=== PATIENT | female | born 1990 | race African-American/Black ===

== ENCOUNTER 2016-11-02 05:38 | Inpatient (IN) | payer OTHER ==
--- NOTE | ~2016-11-02 | DS ---
Discharge Summary [facility] [address] [place]. [address] NAME: EDDIE ESCOBAR : 89 STATUS : DIS IN PAT#: [id number] AGE: 26 ADM/REG DATE : 11/02/16 MR#: [id number] REPORT SERV DATE: 11/14/16 DICTATED BY: ELROY LAZARO DATE: 11/14/16 REPORT STATUS : Draft TRANSCRIBED BY: MODKrista DATE: 11/14/16 Data Collection from hospitalization DISCHARGE DIAGNOSES: 1. End-stage renal disease. 2. Hypertension. 3. Type 2 diabetes mellitus. 4. Noncompliance. 5. Bipolar disorder. 6. Nausea and vomiting. 7. History of stroke. 8. Hypothyroidism. 9. History of cholestatic hepatitis. 10.Neurogenic bladder. 11.History of steal syndrome. CONSULTATIONS: None. PROCEDURES: None. DISCHARGE MEDICATIONS: Coreg 25 mg twice a day, Prozac 10 mg every morning, Apresoline 50 mg every eight hours, NovoLog injection insulin as instructed, Levemir 10 units subcutaneously twice a day, Imodium 2 mg daily as needed, Cozaar 50 mg every morning, and Procardia XL 90 mg every morning, Protonix 40 mg daily as needed, and Florastor 250 mg every morning. CONDITION ON DISCHARGE: Stable. DISPOSITION: The patient was discharged home on a renal-diabetic diet with activities as instructed. She would resume outpatient hemodialysis as instructed. HOSPITAL COURSE: This is a 26-year-old female, who dialyzes on Mondays, Wednesdays, and Fridays at [facility] through a chronic catheter. She has an extensive medical history that is well outlined in previous notes. She has a significant history of nephrotic range proteinuria and type 1 insulin-dependent diabetes mellitus. She has a longstanding history of noncompliance and a very difficult social history. She has been on dialysis since April 2015. She was recently here at [facility] with a prolonged admission and went home on 10/11/2016. She came back on the day of this admission with less than a 24-hour history of nausea, vomiting, and very little oral intake. She was found to have hypertensive urgency in the emergency room that did not respond to hydralazine. Her blood pressure was 240/144 on arrival. She was admitted to the hospital at this time for further evaluation and treatment. Upon admission, she was placed in the MICU. Cardene drip was started. Later in the afternoon, her blood pressure was 158/91. KUB showed nonobstructive gas pattern. A PICC line was inserted. Cardene drip was continued. We would restart home blood pressure medication, except for Catapres patch. Sliding scale insulin would be provided as well as proton pump inhibitor. The following day, the O2 saturation was 100% on 4 L. She had no dyspnea. She did have rhonchi in both lungs. Blood pressure had improved. Supportive care Discharge Summary [id number] [place]. [address] NAME: EDDIE ESCOBAR : 90 STATUS : DIS IN PAT#: [id number] AGE: 26 ADM/REG DATE : 11/02/16 MR#: [id number] REPORT SERV DATE: 11/14/16 DICTATED BY: ELROY LAZARO DATE: 11/14/16 REPORT STATUS : Draft TRANSCRIBED BY: MODL DATE: 11/14/16 continued. Placed on a clear liquid diet. On 11/04/2016, her blood pressure continued to improve with oral medications. She was going to be transferred to the floor. Hemodialysis therapy continued. She continued to progress. She had no new complaints. She had no edema. She had good pain control. Discharge planning was performed. On 11/06/2016, hemodialysis therapy was performed. Discharge instructions were given. Due to her improved and stable condition, she was discharged home with the above-stated instructions. Information collected by: Lisa Rene I submit the above information as my discharge summary. MELISSA/ZACARIAS Elroy Lazaro M.D. / [id number] CC: Tee Aparicio M.D.
--- NOTE | ~2016-11-02 | HP ---
History And Physical [id number] [facility] [place]. [address] NAME: EDDIE MASON : 90 STATUS : ADM IN [facility]#: [id number] AGE: 26 ADM/REG DATE : 11/02/16 MR#: [id number] REPORT SERV DATE: 11/02/16 DICTATED BY: JOSH DESIR DATE: 11/02/16 REPORT STATUS : Draft TRANSCRIBED BY: MODKrista DATE: 11/02/16 DATE OF ADMISSION: 11/02/2016 CHIEF COMPLAINT: Nausea, vomiting. HISTORY OF PRESENT ILLNESS: Ms Mason is a 26-year-old female, well known to the Nephrology Service. She dialyzes Friday, Friday, Friday at [address] [place] [address] through a chronic catheter. She has an extensive medical history that is well outlined in previous notes. She has a significant history of nephrotic range proteinuria and type 1 insulin dependent diabetes mellitus. She has a longstanding history of noncompliance and a very difficult social history. She has been on dialysis since April 2015. She was recently here at [facility] with a prolonged admission and went home on 10/11/2016. She came back today with less than 24 hour history of nausea, vomiting, and very little oral intake. She was found to have hypertensive urgency in the emergency room that did not respond to hydralazine. Her blood pressure was 240/144 on arrival. Nephrology was called for admission. She was placed in the MICU and started on a Cardene drip. This afternoon blood pressure is 158/91. Today, KUB showed no nonobstructive gas pattern. Chest x-ray showed no peripheral edema. Potassium 3.6. ALT, AST were normal. PAST MEDICAL HISTORY: 1. ESRD, [address] [place] [address], Friday, Friday, Friday, PermCath. 2. Longstanding history of medical noncompliance as per chart. 3. IDDM type 1 with neuropathy, gastroparesis, and nephrotic range of proteinuria, intolerant of Reglan. 4. Hypertension. 5. Esophagitis on previous scopes. 6. Bipolar disorder with depression. 7. History of stroke. 8. History of atrial thrombus. 9. Hypothyroid. 10.Cholestatic hepatitis with previous liver biopsy. 11.Neurogenic bladder. 12.History of Steal syndrome with ligation of AV fistula and chronic PermCath. 13.Echo July 2016, EF 50% with LVH, diastolic dysfunction, trace effusion, RVSP 27, and a right atrial mass. MEDICATIONS: Home medication list is reviewed. Unclear if she is actually taking the medications or was unable to keep the medications down yesterday from her nausea and vomiting. List includes Coreg 25 mg b.i.d., Catapres patch #3 which she is not wearing at the time of admission, Bentyl 10 mg p.r.n. b.i.d., Cardura 4 mg b.i.d., Prozac 10 mg daily, hydralazine 50 mg t.i.d., Levemir 10 units b.i.d., Imodium p.r.n., Cozaar 50 mg daily, Procardia 90 mg daily, Protonix 40 mg daily, Florastor 250 mg daily. FAMILY HISTORY: Noncontributory. History And Physical [address] [address] NAME: EDDIE MASON : 90 STATUS : ADM IN [facility]#: [id number] AGE: 26 ADM/REG DATE : 11/02/16 MR#: [id number] REPORT SERV DATE: 11/02/16 DICTATED BY: JOSH DESIR DATE: 11/02/16 REPORT STATUS : Draft TRANSCRIBED BY: ZACARIAS DATE: 11/02/16 SOCIAL HISTORY: Lives with her aunt in [place], single, disabled. Denies alcohol and tobacco. REVIEW OF SYSTEMS: Please see HPI for pertinent details. PHYSICAL EXAMINATION: VITAL SIGNS: Temperature 97.5, pulse 102, blood pressure 158/91, respirations 14, 97% sat 2 liters per nasal cannula. GENERAL: She is a young female, who is awake, alert, oriented, and cooperative with the exam. She has a flat affect. Denies current complaints other than nausea and vomiting. HEENT: Sclerae without icterus. Conjunctivae not injected. She has diffuse 2 to 3+ body anasarca. No dyspnea. HEART: Rate tachycardic, regular rhythm. ABDOMEN: Obese, soft, nontender, nondistended. EXTREMITIES: Show the edema. Her IJ Perma-Cath is bandaged, clean, dry, and intact. NEURO: Grossly nonfocal. SKIN: Shows no rash. She has a right PICC line placed today. LABORATORY DATA: Sodium 140, potassium 3.6, bicarb 29, BUN 15, creatinine 4.2, calcium 9.4. Albumin 4.2, total bilirubin 2.5. White count 5500, hemoglobin 10.3, platelets 175,000. ASSESSMENT AND PLAN: Ms Mason has end-stage renal disease, insulin-dependent diabetes mellitus, malignant hypertension, neuropathy, gastroparesis, and the medical history outlined above. She presents today with hypertensive urgency. Admit to the Renal service to the ICU. Continue Cardene drip. Restart home blood pressure medications except for Catapres patch. Need to clarify which she was actually taking at home. PPI sliding scale insulin. Dialysis Friday. Transition to floor when blood pressure is improved. We will ask case management to re-evaluate her situation on Friday. FILEMON/ZACARIAS Josh Desir M.D. / [id number] CC: Josh Desir M.D.
[2016-11-02 04:31] LABS: BASOPHILS 0.5 %; BASOPHILS ABSOLUTE 0.03 10/3/uL (0.0-0.16); EOSINOPHILS 8.7 %; EOSINOPHILS ABSOLUTE 0.48 10/3/uL (0.0-0.53); ER CBC TAT 0 Hrs 03 Mins; HEMOGLOBIN 10.3 g/dL (12.0-16.0); IMMATURE GRANULOCYTES 0.2 %; IMMATURE GRANULOCYTES ABSOLUTE 0.01 10/3/uL (0.0-0.11); LYMPHOCYTES 12.3 %; LYMPHOCYTES ABSOLUTE 0.68 10/3/uL (0.67-4.30); MEAN CORPUS HGB CONC 31.9 g/dL (32.0-36.0); MONOCYTES 10.9 %; NEUTROPHILS 67.4 %; NEUTROPHILS ABSOLUTE 3.72 10/3/uL (2.02-8.40); PLATELET COUNT 175 10/3/uL (150-400); RED CELL COUNT 3.43 10/6/uL (4.0-5.6); WHITE BLOOD CELLS 5.5 10/3/uL (4.5-10.5)
[2016-11-02 04:32] LABS: HEMATOCRIT 32.3 % (36.0-48.0); MANUAL DIFF NO %; MEAN CORPUSCULAR VOLUME 94.2 fL (80-100); RBC DISTRIBUTION WIDTH 19.2 % (12.0-16.0)
[2016-11-02 04:49] LABS: CALCIUM, SERUM 9.4 MG/DL (8.5-10.4); CHLORIDE, SERUM 97 MMOL/L (96-112); SGOT(AST) 18 U/L (5-40); SGPT(ALT) 14 U/L (5-65); SODIUM, SERUM 140 MMOL/L (135-148); TOTAL PROTEIN 8.3 G/DL (6.0-8.5); TROPONIN I 0.03 NG/ML (<0.05)
[2016-11-02 04:50] LABS: ALBUMIN 4.2 G/DL (3.5-5.0); ALKALINE PHOSPHATASE 278 U/L (45-117); BUN (BLOOD UREA NITROGEN) 15 MG/DL (6-23); CO2 (CARBON DIOXIDE) 29 MMOL/L (24-34); CREATININE 4.52 MG/DL (0.55-1.02); GFR AFRICAN AMERICAN 15 ML/MIN (>=60); GFR NON AFRICAN AMERICAN 13 ML/MIN (>=60); GLOBULIN 4.1 G/DL (2.5-4.1); GLUCOSE, SERUM 217 MG/DL (60-99); POTASSIUM, SERUM 3.6 MMOL/L (3.5-5.3); TOTAL BILIRUBIN 2.5 MG/DL (0-1.2)
[~2016-11-02 05:38] MED LIST: *UNABLE1; ACT300 PO; AMIT25 PO; APRES50 PO; BENTYL10 PO; BLOOD PRESSURE MED 1; BLOOD PRESSURE MED 2; CARDU4 PO; CAT1 PO; CAT2 PO; CATAPRES2 TOP; CATAPRES3 TOP; COREG25 PO; COZ50 PO; DSS PO; FLORASTOR250 MG PO; HEART MEDICATION; HUMALOG SC; HYDRALAZINE PO; HYDRALAZINE100 MG PO; IMDUR30 PO; IMOD PO; L20 PO; L40 PO; LASIX; LEVEMIR SC; LEVOTHYROXIN75 MCG PO; LIPITOR20 PO; LONITEN2.5 PO; NEUR100 PO; NORCO1 TA2 PO; NORCO1 TAB PO; NORV10 PO; NORV5 PO; NOVOLOG SC; NXL9 PO; PCET PO; PHOSLO PO; PR25 PO; PRIN10 PO; PRIN20 PO; PROTONIX PO; PROZ10 PO; PROZAC PO; REG PO; SENTAB PO; SEROQUEL50 MG PO; SPIRO25 PO; UNABLE TO VERIFY; VITE PO; ZESTRIL20 MG PO; ZOCOR10 PO
[2016-11-02] MEDS ORDERED: COREG25 PO (09:08)
[2016-11-02] MEDS ORDERED: CATAPRES3 TOP (09:08)
[2016-11-02] MEDS ORDERED: CARDU4 PO (09:09)
[2016-11-02] MEDS ORDERED: BENTYL10 PO (09:09)
[2016-11-02] MEDS ORDERED: PROZ10 PO (09:09)
[2016-11-02] MEDS ORDERED: LEVEMIR SC (09:10)
[2016-11-02] MEDS ORDERED: APRES50 PO (09:10)
[2016-11-02] MEDS ORDERED: NOVOLOG SC (09:10)
[2016-11-02] MEDS ORDERED: IMOD PO (09:11)
[2016-11-02] MEDS ORDERED: NXL9 PO (09:11)
[2016-11-02] MEDS ORDERED: COZ50 PO (09:11)
[2016-11-02] MEDS ORDERED: FLORASTOR250 MG PO (09:12)
[2016-11-02] MEDS ORDERED: PROTONIX PO (09:12)
[2016-11-03 09:53] LABS: BASOPHILS 0.6 %; BASOPHILS ABSOLUTE 0.05 10/3/uL (0.0-0.16); EOSINOPHILS 7.6 %; HEMATOCRIT 31.8 % (36.0-48.0); IMMATURE GRANULOCYTES 0.3 %; IMMATURE GRANULOCYTES ABSOLUTE 0.02 10/3/uL (0.0-0.11); LYMPHOCYTES 12.2 %; LYMPHOCYTES ABSOLUTE 0.97 10/3/uL (0.67-4.30); MEAN CORPUS HGB CONC 31.4 g/dL (32.0-36.0); MEAN CORPUSCULAR HEMOGLOB 30.4 pg (26.0-34.0); MEAN CORPUSCULAR VOLUME 96.7 fL (80-100); MEAN PLATELET VOLUME 10.2 fL (9.2-13.0); MONOCYTES 7.3 %; MONOCYTES ABSOLUTE 0.58 10/3/uL (0.21-1.20); NEUTROPHILS ABSOLUTE 5.71 10/3/uL (2.02-8.40); PLATELET COUNT 205 10/3/uL (150-400); RBC DISTRIBUTION WIDTH 19.7 % (12.0-16.0); RED CELL COUNT 3.29 10/6/uL (4.0-5.6)
[2016-11-03 09:54] LABS: MANUAL DIFF NO %; WHITE BLOOD CELLS 7.9 10/3/uL (4.5-10.5)
[2016-11-03 09:57] LABS: INTERNATIONAL NORMAL RATI 1.3 UNITS (-); PROTIME (NOT ORD) 16.1 SEC (12.0-14.5)
[2016-11-03 10:04] LABS: CHLORIDE, SERUM 98 MMOL/L (96-112); CO2 (CARBON DIOXIDE) 33 MMOL/L (24-34); PHOSPHORUS, SERUM 4.9 MG/DL (2.5-4.5); POTASSIUM, SERUM 3.5 MMOL/L (3.5-5.3); SODIUM, SERUM 143 MMOL/L (135-148)
[2016-11-03 10:05] LABS: BUN (BLOOD UREA NITROGEN) 21 MG/DL (6-23); CREATININE 6.26 MG/DL (0.55-1.02); GFR AFRICAN AMERICAN 10 ML/MIN (>=60); GFR NON AFRICAN AMERICAN 8 ML/MIN (>=60); GLUCOSE, SERUM 173 MG/DL (60-99)
[2016-11-04 04:50] LABS: ALBUMIN 3.8 G/DL (3.5-5.0); BUN (BLOOD UREA NITROGEN) 22 MG/DL (6-23); CALCIUM, SERUM 8.1 MG/DL (8.5-10.4); CHLORIDE, SERUM 96 MMOL/L (96-112); CO2 (CARBON DIOXIDE) 34 MMOL/L (24-34); PHOSPHORUS, SERUM 5.4 MG/DL (2.5-4.5); POTASSIUM, SERUM 3.7 MMOL/L (3.5-5.3); SODIUM, SERUM 142 MMOL/L (135-148)
[2016-11-04 04:52] LABS: GFR AFRICAN AMERICAN 8 ML/MIN (>=60); GFR NON AFRICAN AMERICAN 7 ML/MIN (>=60); GLUCOSE, SERUM 105 MG/DL (60-99)
[2016-11-04 05:00] LABS: BASOPHILS 0.6 %; BASOPHILS ABSOLUTE 0.05 10/3/uL (0.0-0.16); EOSINOPHILS 12.1 %; EOSINOPHILS ABSOLUTE 0.98 10/3/uL (0.0-0.53); HEMATOCRIT 32.6 % (36.0-48.0); HEMOGLOBIN 9.9 g/dL (12.0-16.0); IMMATURE GRANULOCYTES 0.1 %; IMMATURE GRANULOCYTES ABSOLUTE 0.01 10/3/uL (0.0-0.11); LYMPHOCYTES 20.1 %; LYMPHOCYTES ABSOLUTE 1.62 10/3/uL (0.67-4.30); MEAN CORPUS HGB CONC 30.4 g/dL (32.0-36.0); MEAN CORPUSCULAR HEMOGLOB 29.1 pg (26.0-34.0); MEAN CORPUSCULAR VOLUME 95.9 fL (80-100); MEAN PLATELET VOLUME 9.7 fL (9.2-13.0); MONOCYTES 8.6 %; MONOCYTES ABSOLUTE 0.69 10/3/uL (0.21-1.20); NEUTROPHILS 58.5 %; NEUTROPHILS ABSOLUTE 4.72 10/3/uL (2.02-8.40); PLATELET COUNT 237 10/3/uL (150-400); RBC DISTRIBUTION WIDTH 19.6 % (12.0-16.0); WHITE BLOOD CELLS 8.1 10/3/uL (4.5-10.5)
[2016-11-04 05:02] LABS: MANUAL DIFF NO %
[2016-11-05 06:41] LABS: BASOPHILS 0.5 %; BASOPHILS ABSOLUTE 0.04 10/3/uL (0.0-0.16); EOSINOPHILS 12.9 %; HEMATOCRIT 35.2 % (36.0-48.0); HEMOGLOBIN 10.8 g/dL (12.0-16.0); IMMATURE GRANULOCYTES 0.1 %; IMMATURE GRANULOCYTES ABSOLUTE 0.01 10/3/uL (0.0-0.11); LYMPHOCYTES 14.8 %; LYMPHOCYTES ABSOLUTE 1.15 10/3/uL (0.67-4.30); MEAN CORPUS HGB CONC 30.7 g/dL (32.0-36.0); MEAN CORPUSCULAR HEMOGLOB 29.7 pg (26.0-34.0); MEAN CORPUSCULAR VOLUME 96.7 fL (80-100); MEAN PLATELET VOLUME 10.1 fL (9.2-13.0); MONOCYTES 10.6 %; MONOCYTES ABSOLUTE 0.82 10/3/uL (0.21-1.20); NEUTROPHILS 61.1 %; NEUTROPHILS ABSOLUTE 4.74 10/3/uL (2.02-8.40); PLATELET COUNT 233 10/3/uL (150-400); RBC DISTRIBUTION WIDTH 18.7 % (12.0-16.0); RED CELL COUNT 3.64 10/6/uL (4.0-5.6); WHITE BLOOD CELLS 7.8 10/3/uL (4.5-10.5)
[2016-11-05 06:42] LABS: MANUAL DIFF NO %
[2016-11-05 06:55] LABS: ALBUMIN 3.6 G/DL (3.5-5.0); CALCIUM, SERUM 8.9 MG/DL (8.5-10.4); CHLORIDE, SERUM 100 MMOL/L (96-112); PHOSPHORUS, SERUM 5.3 MG/DL (2.5-4.5); POTASSIUM, SERUM 3.8 MMOL/L (3.5-5.3); SODIUM, SERUM 140 MMOL/L (135-148)
[2016-11-05 06:57] LABS: BUN (BLOOD UREA NITROGEN) 17 MG/DL (6-23); CO2 (CARBON DIOXIDE) 29 MMOL/L (24-34); CREATININE 6.63 MG/DL (0.55-1.02); GFR AFRICAN AMERICAN 9 ML/MIN (>=60); GFR NON AFRICAN AMERICAN 8 ML/MIN (>=60); GLUCOSE, SERUM 174 MG/DL (60-99)
[2016-11-06 09:04] LABS: BASOPHILS 0.8 %; BASOPHILS ABSOLUTE 0.06 10/3/uL (0.0-0.16); EOSINOPHILS 11.8 %; EOSINOPHILS ABSOLUTE 0.93 10/3/uL (0.0-0.53); HEMOGLOBIN 10.5 g/dL (12.0-16.0); IMMATURE GRANULOCYTES 0.3 %; IMMATURE GRANULOCYTES ABSOLUTE 0.02 10/3/uL (0.0-0.11); LYMPHOCYTES ABSOLUTE 1.26 10/3/uL (0.67-4.30); MANUAL DIFF NO %; MEAN CORPUS HGB CONC 31.8 g/dL (32.0-36.0); MEAN CORPUSCULAR HEMOGLOB 30.2 pg (26.0-34.0); MEAN CORPUSCULAR VOLUME 94.8 fL (80-100); MEAN PLATELET VOLUME 10.2 fL (9.2-13.0); MONOCYTES 10.9 %; MONOCYTES ABSOLUTE 0.86 10/3/uL (0.21-1.20); NEUTROPHILS 60.2 %; NEUTROPHILS ABSOLUTE 4.73 10/3/uL (2.02-8.40); PLATELET COUNT 235 10/3/uL (150-400); RBC DISTRIBUTION WIDTH 18.4 % (12.0-16.0); RED CELL COUNT 3.48 10/6/uL (4.0-5.6); WHITE BLOOD CELLS 7.9 10/3/uL (4.5-10.5)
[2016-11-06 09:26] LABS: ALBUMIN 3.4 G/DL (3.5-5.0); BUN (BLOOD UREA NITROGEN) 27 MG/DL (6-23); CALCIUM, SERUM 8.5 MG/DL (8.5-10.4); CHLORIDE, SERUM 100 MMOL/L (96-112); CO2 (CARBON DIOXIDE) 27 MMOL/L (24-34); CREATININE 8.51 MG/DL (0.55-1.02); GFR AFRICAN AMERICAN 7 ML/MIN (>=60); GFR NON AFRICAN AMERICAN 6 ML/MIN (>=60); GLUCOSE, SERUM 185 MG/DL (60-99); PHOSPHORUS, SERUM 6.9 MG/DL (2.5-4.5); POTASSIUM, SERUM 4.6 MMOL/L (3.5-5.3); SODIUM, SERUM 140 MMOL/L (135-148)
[2017-03-02] MEDS ORDERED: BIST PO (11:48)
[2017-03-02] MEDS ORDERED: NOVOLOG SC (11:48)
[2017-03-02] MEDS ORDERED: MULTIVITAMI1 PO (11:53)
[2017-03-02] MEDS ORDERED: MIRALAX POWDER1 PKT PO (11:54)
[2017-03-02] MEDS ORDERED: CARDCD120 PO (11:55)
[2017-03-02] MEDS ORDERED: NXL9 PO (11:58)
[2017-03-02] MEDS ORDERED: REG5 PO (11:59)
== END 2016-11-06 20:06 | disposition home or self-care (01) | DRG 682 ==
LOC: ER 05:38 → MIC 08:32 → 2SO 11-04 13:51
PROVIDERS: Emergency Medicine; Internal Medicine Nephrology; Registered Nurse
PROC: 02HV33Z Insertion of Infusion Device into Superior Vena Cava, Percutaneous Approach (ICD-10-PCS; 2016-11-02)
PROC: 4A02X4A Measurement of Cardiac Electrical Activity, Guidance, External Approach (ICD-10-PCS; 2016-11-02)
PROC: 5A1D60Z (ICD-10-PCS; principal; 2016-11-04)
DX: I12.0 Hypertensive chronic kidney disease with stage 5 chronic kidney disease or end stage renal disease (principal); N18.6 End stage renal disease; E10.21 Type 1 diabetes mellitus with diabetic nephropathy; K31.84 Gastroparesis; E10.43 Type 1 diabetes mellitus with diabetic autonomic (poly)neuropathy; K75.89 Other specified inflammatory liver diseases; N31.9 Neuromuscular dysfunction of bladder, unspecified; I16.0 Hypertensive urgency; E10.22 Type 1 diabetes mellitus with diabetic chronic kidney disease; F31.9 Bipolar disorder, unspecified; E03.9 Hypothyroidism, unspecified; Z99.2 Dependence on renal dialysis; Z79.4 Long term (current) use of insulin; Z91.14 Patient's other noncompliance with medication regimen; Z86.73 Personal history of transient ischemic attack (TIA), and cerebral infarction without residual deficits
CPT/HCPCS: 36569; 74022; 80048; 80053; 80069; 82962; 83690; 83735; 84100; 84484; 85025; 85610; 87641; 93005; 96374; 96375; 96376; 99291; A9270-GY; C1751; C9113; G0257; J0360; J1170; J2550; J2997

== ENCOUNTER 2016-11-09 23:02 | Inpatient (IN) | payer OTHER ==
--- NOTE | ~2016-11-09 | DS ---
Discharge Summary [facility] [address] [place]. [address] NAME: EDDIE MASON : 89 STATUS : ADM IN PAT#: [id number] AGE: 26 ADM/REG DATE : 11/10/16 MR#: [id number] REPORT SERV DATE: 11/13/16 DICTATED BY: DAMIR SANCHEZ DATE: 11/13/16 REPORT STATUS : Draft TRANSCRIBED BY: MODKrista DATE: 11/13/16 ADMISSION DATE: 11/10/2016 DISCHARGE DATE: 11/13/2016 INDICATION FOR HOSPITALIZATION: Accelerated hypertension, nausea, and vomiting. DISCHARGE DIAGNOSES: 1. Nausea and vomiting secondary to diabetic gastroparesis. 2. Accelerated hypertension, likely due to noncompliance of medication compounded by nausea, vomiting, and inability to keep down medications. 3. End-stage renal disease, dialyzing Friday, Friday, and Friday at [facility] by PermCath. 4. Type 1 diabetes mellitus, insulin dependent. 5. Bipolar illness with depression. 6. History of noncompliance with recurrent hospitalizations. 7. Remote esophagitis. 8. Remote cerebrovascular accident. 9. Atrial thrombus. 10.Hypothyroidism. 11.History of cholestatic hepatitis on liver biopsy. 12.Chronic PermCath use for dialysis due to Steal syndrome and inability to create AV fistula or graft. HOSPITAL COURSE: Ms. Mason presented to the emergency room with protracted nausea and vomiting. She was noted to have a blood pressure of 254/149 which did not respond to the IV hydralazine or IV labetalol. She required initiation of Cardene. She had persistent nausea and vomiting which was treated with Zofran, Phenergan, and Reglan. The nausea and vomiting abated and her routine antihypertensives were initiated. She remained in the unit until 11/12/2016 when she was off Cardene and blood pressure was controlled on oral medication. She was tolerating diet well. She has a tendency to bring in junk food and eat which affects her blood sugars with very labile swings. She had no complaints at the time of discharge. She was advised that she would not receive IV Dilaudid due to worsening of her diabetic gastroparesis. She was advised that she should not bring in food from home if she returned to the hospital because that effected blood sugar control. DISCHARGE MEDICATIONS: 1. Coreg 25 mg twice daily. 2. Prozac 10 mg daily. 3. Levemir insulin 15 units subcu twice daily. 4. Cozaar 50 mg daily. 5. Reglan 10 mg a.c. and at bedtime. 6. Nifedipine XL 90 mg daily. 7. Protonix 40 mg daily. 8. Florastor 250 mg daily. 9. Hydralazine 50 mg p.o. q.8h. 10.Humalog insulin per sliding home scale. Discharge Summary [address] [address] NAME: EDDIE MASON : 90 STATUS : ADM IN [facility]#: [id number] AGE: 26 ADM/REG DATE : 11/10/16 MR#: [id number] REPORT SERV DATE: 11/13/16 DICTATED BY: DAMIR SANCHEZ DATE: 11/13/16 REPORT STATUS : Draft TRANSCRIBED BY: MODL DATE: 11/13/16 11.Imodium 2 mg daily p.r.n. for diarrhea. FOLLOWUP: On dialysis at [address] [place] [address] as scheduled. DIET: 2000 calorie ADA renal diet with 1500 mL fluid restriction per day. NO FURTHER DILAUDID as she is intolerant to Dilaudid due to worsening of gastroparesis on this medication. The patient advised not to bring in food from home if she re-presented to the hospital, it will be removed from her room until her discharge. CG/ZACARIAS Damir Sanchez M.D. / [id number] CC: Damir Sanchez M.D.
--- NOTE | ~2016-11-09 | DS ---
Discharge Summary [facility] [address] [facility] [place]. [address] NAME: EDDIE MASON : 89 STATUS : DIS IN PAT#: [id number] AGE: 26 ADM/REG DATE : 11/10/16 MR#: [id number] REPORT SERV DATE: 12/28/16 DICTATED BY: DATE: REPORT STATUS : Draft TRANSCRIBED BY: MODL DATE: 12/27/16 ADMISSION DATE: 11/10/2016 DISCHARGE DATE: 12/27/2016 CHIEF COMPLAINT AND HISTORY OF PRESENT ILLNESS: Ms. Mason is a 26-year-old female, well known to our service with multiple admissions because of noncompliance to medication, dialysis and diet therapy. She presented to the hospital on 11/10/2016 with accelerated hypertension, nausea, and vomiting. COURSE IN HOSPITAL: Ms. Mason presented with nausea, vomiting, accelerated hypertension of 259/149 that did not respond to IV push medicines in the emergency department, therefore, required initiation of Cardene drip and she is noncompliant with her blood pressure medications at home. She also had persistent nausea and vomiting due to noncompliance with medications and diet therapy. With Cardene, Zofran, Reglan, , these all improved and she was able to be transferred out of the unit on 11/12/2016 on blood pressure medicines, controlled on oral medications, tolerating diet, and plans were to discharge the patient. However, given her multiple hospitalizations for her noncompliance and inability to care for herself, it was decided to keep her in the hospital and see if we could seek placement at either a fpc versus assisted living facility and Case Management got involved and they had worked relentlessly trying to get this patient some better situation for her care with more help. However, after searching as far out as [place] for places, they have exhausted all measures and plans have been made to send the patient home with her aunt who previously cared for the patient in the past. She has been stable for over a month here in the hospital, and she is ready for discharge. DISCHARGE MEDICATIONS: Coreg, Colace, doxazosin, Prozac, folic acid, NovoLog insulin per sliding scale, Reglan, multivitamin, nifedipine, Protonix, Seroquel, Florastor, Carafate, hydralazine, and Levemir. DISCHARGE PLAN: She is going to be discharged to home. Followup at dialysis on [address] on Friday. Her diet is to be 1800-calorie renal diet. She has had multiple instructions on diet therapy while she has been here and remains noncompliant with diet. FINAL DIAGNOSES: 1. Initially was intractable nausea and vomiting. 2. Accelerated hypertension. 3. Noncompliance to medications as well as diet therapy. 4. End-stage renal disease. 5. Type 1 diabetes. 6. Bipolar disorder. 7. Inability to care for self. 8. A distant history of atrial thrombus, not a Coumadin candidate due to noncompliance. 9. Esophagitis. 10.History of remote cerebrovascular accident. 11.Hypothyroidism. 12.History of cholestatic hepatitis. Discharge Summary [address] [address] NAME: EDDIE MASON : 89 STATUS : DIS IN PAT#: [id number] AGE: 26 ADM/REG DATE : 11/10/16 MR#: [id number] REPORT SERV DATE: 12/28/16 DICTATED BY: DATE: REPORT STATUS : Draft TRANSCRIBED BY: ZACARIAS DATE: 12/27/16 LEODAN/ZACARIAS MARISSA Mann / [id number] CC: Cosmo Olmos M.D.
--- NOTE | ~2016-11-09 | HP ---
History And Physical [address] [place]. [address] NAME: EDDIE MASON : 90 STATUS : ADM IN [facility]#: [id number] AGE: 26 ADM/REG DATE : 11/10/16 MR#: [id number] REPORT SERV DATE: 11/10/16 DICTATED BY: DAMIR SANCHEZ DATE: 11/10/16 REPORT STATUS : Draft TRANSCRIBED BY: MODKrista DATE: 11/10/16 DATE OF ADMISSION: 11/10/2016 INDICATION FOR ADMISSION: Accelerated hypertension, nausea, and vomiting. HISTORY OF PRESENT ILLNESS: Ms. Mason is a 26-year-old female who is followed, on chronic dialysis at [address] [place] [address] on Friday, Friday, and Friday. She presented to the emergency room with a blood pressure of 254/149 and this did not respond to various IV antihypertensives, and Cardene infusion was initiated. She has a strong history of noncompliance, and she noted problems with recent nausea and vomiting. She is afebrile with some nausea this morning. Blood sugars have been controlled. ALLERGIES: TO PENICILLIN. HOME MEDICATIONS: Carvedilol, Prozac, Levemir insulin, Synthroid, Prinivil, Reglan, hydralazine, clonidine, nifedipine, Imodium, losartan, NovoLog insulin, Protonix, Florastor. REVIEW OF SYSTEMS: HEENT: No change in visual acuity. No epistaxis. No otic infection. No pharyngitis. PULMONARY: Denies shortness of breath, hemoptysis. CARDIAC: No chest pain. No lower extremity edema. GI: Recent nausea and vomiting. No hematemesis. No melena. : No gross hematuria. MUSCULOSKELETAL: No arthralgias. INTEGUMENT: No rash or itching. NEUROLOGIC: Denies any recent change in regard to weakness. No seizure activity. Remainder of 12-point review of systems is negative. PAST MEDICAL HISTORY: End-stage renal disease attributed to type 1 diabetes mellitus dialyzing Friday, Friday, Friday at [address] [place] [address]. Refractory hypertension and admissions for accelerated hypertension. 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 Chronic PermCath for access due to steal syndrome requiring ligation of fistula. History of esophagitis. Strong history of noncompliance. SOCIAL HISTORY: The patient has altered living conditions; sometimes living with father, sometimes with aunt. She has also lived in assisted living. She is unable to make her own decisions per Psychiatry, and she has been under court-appointed state conservator in the past. No use of illicit drugs, alcohol or tobacco. FAMILY HISTORY: Positive for psychiatric disorder. No end-stage renal disease. PHYSICAL EXAMINATION: VITAL SIGNS: Admission blood pressure 254/149. Current vital signs: Blood pressure History And Physical [address] [place]. [address] NAME: EDDIE MASON : 89 STATUS : ADM IN [facility]#: [id number] AGE: 26 ADM/REG DATE : 11/10/16 MR#: [id number] REPORT SERV DATE: 11/10/16 DICTATED BY: DAMIR SANCHEZ DATE: 11/10/16 REPORT STATUS : Draft TRANSCRIBED BY: ZACARIAS DATE: 11/10/16 172/88, temperature 97.5, pulse 91, respiratory rate 20. GENERAL: A young female, chronically ill, complaining of nausea. HEENT: Eyes; no scleral icterus. Pupils equal, reactive to light. Extraocular movement intact. Nares patent. No discharge. Throat, no injection. Mucous membranes moist. NECK: No thyromegaly, masses, or bruits. CHEST/LUNGS: Clear to auscultation and percussion. CARDIAC: Regular rate and rhythm. Questionable 1/6 systolic ejection murmur. No gallop. No rub. ABDOMEN: Supple. Normoactive bowel sounds. Nontender. BREAST/PELVIC/RECTAL: Not performed. EXTREMITIES: No lower extremity edema. No calf tenderness. DERMIS: No rash. No skin lesions. NEUROLOGIC: No lateralizing weakness. Cranial nerves appear grossly intact. IMPRESSION: 1. Accelerated hypertension. Possibly due to noncompliance with medication, which is typical versus diabetic gastroparesis and inability to keep down medications. 2. Nausea and vomiting, likely diabetic gastroparesis. 3. End-stage renal disease, dialyzing Friday, Friday, Friday at [address] [facility] by PermCath. 4. Type 1 diabetes mellitus insulin dependent. 5. Bipolar illness with depression. 6. History of noncompliance. 7. Remote esophagitis. 8. Remote cerebrovascular accident. 9. Atrial thrombus. 10.Hypothyroidism. 11.History of cholestatic hepatitis on liver biopsy. 12.Chronic PermCath use for dialysis due to steal syndrome. PLAN: 1. IV Cardene. 2. Protonix, IV Reglan, antiemetics. 3. Resume p.o. BP medications. CG/MODL Damir Sanchez M.D. / [id number] CC: Damir Sanchez M.D.
--- NOTE | ~2016-11-09 | CN ---
Consultation Report [facility] [address] [place]. [address] NAME: EDDIE ESCOBAR : 89 STATUS : ADM IN PAT#: [id number] AGE: 26 ADM/REG DATE : 11/10/16 MR#: [id number] REPORT SERV DATE: 11/13/16 DICTATED BY: RAJAN MELGAR DATE: 11/13/16 REPORT STATUS : Draft TRANSCRIBED BY: MODL DATE: 11/13/16 PSYCHIATRIC CONSULTATION DATE OF CONSULTATION: 11/13/2016 I reviewed the patient's current and old medical records. I discussed her status with her nurse. I discussed her status with Carley, our director social service. HISTORY OF PRESENT ILLNESS: She was admitted with accelerated hypertension, diabetic gastroparesis, and end-stage renal disease. PAST PSYCHIATRIC HISTORY: This patient has a long history of noncompliance, which has contributed to her frequent readmissions. She also described recurring episodes of depression and episodes of altered mood mostly of a dysphoric manic type. About five years ago, she had an admission to [facility] where she was diagnosed with bipolar disorder. During my previous consultations on 05/01/2015 and 01/04/2016, I had started her on Seroquel and I had recommended that she should receive followup outpatient psychiatric care at [facility]. She now explains that her frequent readmissions to this and other hospitals prevented her from continuing at [facility]. The only psychotropic medication in her current home medication list is Prozac 10 mg daily. SOCIAL HISTORY: She was living with an aunt prior to this admission. We are now trying to get her placed in a senior living. She has a court appointed conservator for medical decision making. FAMILY HISTORY: She reports that multiple members on both sides of her family had mood issues and diagnosis of bipolar disorder. MENTAL STATUS: She was very pleasant and cooperative at this time. Her mood was somewhat dysphoric. Her affect was constricted in range. Her thinking was logical. She had no delusions. She had no hallucinations. She was oriented to time and place. She was agreeable to a senior living placement. DIAGNOSIS: Bipolar disorder, not otherwise specified. RECOMMENDATIONS: I strongly agree with her referral to a senior living. I will add Seroquel 50 mg p.o. at bedtime to her medication regimen. She should receive followup psychiatric care either through her senior living or at [facility]. TAPAN/ZACARIAS Rajan Consultation Report [place] [address] [facility] [address] NAME: EDDIE ESCOBAR : 89 STATUS : ADM IN PAT#: [id number] AGE: 26 ADM/REG DATE : 11/10/16 MR#: [id number] REPORT SERV DATE: 11/13/16 DICTATED BY: RAJAN MELGAR. DATE: 11/13/16 REPORT STATUS : Draft TRANSCRIBED BY: ZACARIAS DATE: 11/13/16 Bull Melgar / [id number] CC: Cosmo Olmos M.D.
[2016-11-10 01:27] LABS: BUN (BLOOD UREA NITROGEN) 29 MG/DL (6-23); CHLORIDE, SERUM 97 MMOL/L (96-112); CO2 (CARBON DIOXIDE) 27 MMOL/L (24-34); POTASSIUM, SERUM 3.9 MMOL/L (3.5-5.3); SGPT(ALT) 12 U/L (5-65); SODIUM, SERUM 138 MMOL/L (135-148); TOTAL PROTEIN 8.8 G/DL (6.0-8.5)
[2016-11-10 01:29] LABS: A/G RATIO 0.9 (0.7-1.9); ALBUMIN 4.1 G/DL (3.5-5.0); ALKALINE PHOSPHATASE 241 U/L (45-117); CALCIUM, SERUM 9.9 MG/DL (8.5-10.4); CREATININE 7.26 MG/DL (0.55-1.02); GFR AFRICAN AMERICAN 8 ML/MIN (>=60); GFR NON AFRICAN AMERICAN 7 ML/MIN (>=60); GLOBULIN 4.7 G/DL (2.5-4.1); GLUCOSE, SERUM 133 MG/DL (60-99); SGOT(AST) 19 U/L (5-40); TOTAL BILIRUBIN 1.2 MG/DL (0-1.2)
[2016-11-10 13:30] LABS: BASOPHILS 0.9 %; BASOPHILS ABSOLUTE 0.09 10/3/uL (0.0-0.16); EOSINOPHILS 5.6 %; EOSINOPHILS ABSOLUTE 0.55 10/3/uL (0.0-0.53); HEMOGLOBIN 11.7 g/dL (12.0-16.0); IMMATURE GRANULOCYTES 0.2 %; IMMATURE GRANULOCYTES ABSOLUTE 0.02 10/3/uL (0.0-0.11); LYMPHOCYTES 11.3 %; LYMPHOCYTES ABSOLUTE 1.12 10/3/uL (0.67-4.30); MEAN CORPUS HGB CONC 31.9 g/dL (32.0-36.0); MEAN CORPUSCULAR HEMOGLOB 29.4 pg (26.0-34.0); MEAN CORPUSCULAR VOLUME 92.2 fL (80-100); MEAN PLATELET VOLUME 10.2 fL (9.2-13.0); MONOCYTES 13.3 %; MONOCYTES ABSOLUTE 1.32 10/3/uL (0.21-1.20); NEUTROPHILS 68.7 %; NEUTROPHILS ABSOLUTE 6.79 10/3/uL (2.02-8.40); PLATELET COUNT 211 10/3/uL (150-400); RBC DISTRIBUTION WIDTH 16.9 % (12.0-16.0); RED CELL COUNT 3.98 10/6/uL (4.0-5.6); WHITE BLOOD CELLS 9.9 10/3/uL (4.5-10.5)
[2016-11-10 13:31] LABS: HEMATOCRIT 36.7 % (36.0-48.0); MANUAL DIFF NO %
[2016-11-10 13:43] LABS: ALBUMIN 3.4 G/DL (3.5-5.0); BUN (BLOOD UREA NITROGEN) 32 MG/DL (6-23); CHLORIDE, SERUM 100 MMOL/L (96-112); CO2 (CARBON DIOXIDE) 31 MMOL/L (24-34); POTASSIUM, SERUM 4.1 MMOL/L (3.5-5.3); SODIUM, SERUM 142 MMOL/L (135-148)
[2016-11-10 13:47] LABS: CALCIUM, SERUM 8.9 MG/DL (8.5-10.4); GFR AFRICAN AMERICAN 7 ML/MIN (>=60); GFR NON AFRICAN AMERICAN 6 ML/MIN (>=60); GLUCOSE, SERUM 212 MG/DL (60-99); PHOSPHORUS, SERUM 5.5 MG/DL (2.5-4.5)
[2016-11-10] MEDS ORDERED: COREG25 PO (18:14)
[2016-11-10] MEDS ORDERED: HUMALOG SC (18:14)
[2016-11-10] MEDS ORDERED: PROZ10 PO (18:14)
[2016-11-10] MEDS ORDERED: COZ50 PO (18:15)
[2016-11-10] MEDS ORDERED: LEVEMFLXPN SC (18:15)
[2016-11-10] MEDS ORDERED: NXL9 PO (18:15)
[2016-11-10] MEDS ORDERED: FLORASTOR250 MG PO (18:16)
[2016-11-10] MEDS ORDERED: APRES50 PO (18:16)
[2016-11-10] MEDS ORDERED: PROTONIX PO (18:16)
[2016-11-10] MEDS ORDERED: IMOD PO (18:17)
[2016-11-11 05:11] LABS: EOSINOPHILS 9.4 %; EOSINOPHILS ABSOLUTE 0.92 10/3/uL (0.0-0.53); HEMATOCRIT 38.6 % (36.0-48.0); HEMOGLOBIN 12.5 g/dL (12.0-16.0); IMMATURE GRANULOCYTES 0.3 %; IMMATURE GRANULOCYTES ABSOLUTE 0.03 10/3/uL (0.0-0.11); LYMPHOCYTES 16.8 %; LYMPHOCYTES ABSOLUTE 1.65 10/3/uL (0.67-4.30); MEAN CORPUS HGB CONC 32.4 g/dL (32.0-36.0); MEAN CORPUSCULAR HEMOGLOB 30.2 pg (26.0-34.0); MEAN CORPUSCULAR VOLUME 93.2 fL (80-100); MEAN PLATELET VOLUME 10.1 fL (9.2-13.0); MONOCYTES 8.8 %; MONOCYTES ABSOLUTE 0.86 10/3/uL (0.21-1.20); NEUTROPHILS 63.7 %; NEUTROPHILS ABSOLUTE 6.24 10/3/uL (2.02-8.40); PLATELET COUNT 230 10/3/uL (150-400); RED CELL COUNT 4.14 10/6/uL (4.0-5.6); WHITE BLOOD CELLS 9.8 10/3/uL (4.5-10.5)
[2016-11-11 05:12] LABS: MANUAL DIFF NO %
[2016-11-11 05:17] LABS: ALBUMIN 3.4 G/DL (3.5-5.0); BUN (BLOOD UREA NITROGEN) 33 MG/DL (6-23); CALCIUM, SERUM 8.6 MG/DL (8.5-10.4); CHLORIDE, SERUM 101 MMOL/L (96-112); CO2 (CARBON DIOXIDE) 27 MMOL/L (24-34); PHOSPHORUS, SERUM 5.4 MG/DL (2.5-4.5); SODIUM, SERUM 141 MMOL/L (135-148)
[2016-11-11 05:23] LABS: CREATININE 8.94 MG/DL (0.55-1.02); GFR AFRICAN AMERICAN 6 ML/MIN (>=60); GFR NON AFRICAN AMERICAN 5 ML/MIN (>=60); GLUCOSE, SERUM 76 MG/DL (60-99); POTASSIUM, SERUM 4.5 MMOL/L (3.5-5.3)
[2016-11-12 04:27] LABS: BASOPHILS 1.1 %; BASOPHILS ABSOLUTE 0.09 10/3/uL (0.0-0.16); EOSINOPHILS 13.5 %; EOSINOPHILS ABSOLUTE 1.11 10/3/uL (0.0-0.53); HEMATOCRIT 37.7 % (36.0-48.0); IMMATURE GRANULOCYTES 0.5 %; IMMATURE GRANULOCYTES ABSOLUTE 0.04 10/3/uL (0.0-0.11); LYMPHOCYTES 20.4 %; LYMPHOCYTES ABSOLUTE 1.68 10/3/uL (0.67-4.30); MEAN CORPUS HGB CONC 31.8 g/dL (32.0-36.0); MEAN CORPUSCULAR HEMOGLOB 30.3 pg (26.0-34.0); MEAN CORPUSCULAR VOLUME 95.2 fL (80-100); MEAN PLATELET VOLUME 10.5 fL (9.2-13.0); MONOCYTES ABSOLUTE 1.32 10/3/uL (0.21-1.20); NEUTROPHILS 48.5 %; NEUTROPHILS ABSOLUTE 3.99 10/3/uL (2.02-8.40); PLATELET COUNT 257 10/3/uL (150-400); RBC DISTRIBUTION WIDTH 16.5 % (12.0-16.0); RED CELL COUNT 3.96 10/6/uL (4.0-5.6); WHITE BLOOD CELLS 8.2 10/3/uL (4.5-10.5)
[2016-11-12 04:28] LABS: MANUAL DIFF NO %
[2016-11-12 04:37] LABS: ALBUMIN 3.5 G/DL (3.5-5.0); BUN (BLOOD UREA NITROGEN) 25 MG/DL (6-23); CALCIUM, SERUM 8.4 MG/DL (8.5-10.4); CHLORIDE, SERUM 97 MMOL/L (96-112); CO2 (CARBON DIOXIDE) 25 MMOL/L (24-34); CREATININE 7.13 MG/DL (0.55-1.02); GFR AFRICAN AMERICAN 8 ML/MIN (>=60); GFR NON AFRICAN AMERICAN 7 ML/MIN (>=60); GLUCOSE, SERUM 385 MG/DL (60-99); PHOSPHORUS, SERUM 3.7 MG/DL (2.5-4.5); POTASSIUM, SERUM 4.1 MMOL/L (3.5-5.3); SODIUM, SERUM 137 MMOL/L (135-148)
[2016-11-13 08:39] LABS: BASOPHILS 0.8 %; BASOPHILS ABSOLUTE 0.07 10/3/uL (0.0-0.16); EOSINOPHILS 12.6 %; EOSINOPHILS ABSOLUTE 1.06 10/3/uL (0.0-0.53); HEMATOCRIT 33.6 % (36.0-48.0); HEMOGLOBIN 10.8 g/dL (12.0-16.0); IMMATURE GRANULOCYTES 0.8 %; IMMATURE GRANULOCYTES ABSOLUTE 0.07 10/3/uL (0.0-0.11); LYMPHOCYTES 21.7 %; LYMPHOCYTES ABSOLUTE 1.83 10/3/uL (0.67-4.30); MANUAL DIFF NO %; MEAN CORPUS HGB CONC 32.1 g/dL (32.0-36.0); MEAN CORPUSCULAR HEMOGLOB 29.9 pg (26.0-34.0); MEAN CORPUSCULAR VOLUME 93.1 fL (80-100); MEAN PLATELET VOLUME 10.1 fL (9.2-13.0); MONOCYTES 14.1 %; MONOCYTES ABSOLUTE 1.19 10/3/uL (0.21-1.20); PLATELET COUNT 252 10/3/uL (150-400); RBC DISTRIBUTION WIDTH 16.2 % (12.0-16.0); RED CELL COUNT 3.61 10/6/uL (4.0-5.6); WHITE BLOOD CELLS 8.4 10/3/uL (4.5-10.5)
[2016-11-13 08:49] LABS: ALBUMIN 3.1 G/DL (3.5-5.0); BUN (BLOOD UREA NITROGEN) 40 MG/DL (6-23); CALCIUM, SERUM 8.4 MG/DL (8.5-10.4); CHLORIDE, SERUM 98 MMOL/L (96-112); CO2 (CARBON DIOXIDE) 27 MMOL/L (24-34); CREATININE 8.24 MG/DL (0.55-1.02); GFR AFRICAN AMERICAN 7 ML/MIN (>=60); GFR NON AFRICAN AMERICAN 6 ML/MIN (>=60); POTASSIUM, SERUM 4.6 MMOL/L (3.5-5.3); SODIUM, SERUM 135 MMOL/L (135-148)
[2016-11-13 08:50] LABS: GLUCOSE, SERUM 83 MG/DL (60-99)
[2016-11-16 09:28] LABS: BASOPHILS 0.5 %; BASOPHILS ABSOLUTE 0.05 10/3/uL (0.0-0.16); EOSINOPHILS 11.8 %; HEMOGLOBIN 9.4 g/dL (12.0-16.0); IMMATURE GRANULOCYTES 0.5 %; IMMATURE GRANULOCYTES ABSOLUTE 0.05 10/3/uL (0.0-0.11); LYMPHOCYTES 12.4 %; LYMPHOCYTES ABSOLUTE 1.16 10/3/uL (0.67-4.30); MEAN CORPUS HGB CONC 32.9 g/dL (32.0-36.0); MEAN CORPUSCULAR HEMOGLOB 29.9 pg (26.0-34.0); MEAN CORPUSCULAR VOLUME 91.1 fL (80-100); MEAN PLATELET VOLUME 10.2 fL (9.2-13.0); MONOCYTES 11.8 %; NEUTROPHILS ABSOLUTE 5.88 10/3/uL (2.02-8.40); PLATELET COUNT 220 10/3/uL (150-400); RBC DISTRIBUTION WIDTH 16.7 % (12.0-16.0); RED CELL COUNT 3.14 10/6/uL (4.0-5.6); WHITE BLOOD CELLS 9.3 10/3/uL (4.5-10.5)
[2016-11-16 09:32] LABS: HEMATOCRIT 28.6 % (36.0-48.0); MANUAL DIFF NO %
[2016-11-16 09:42] LABS: ALBUMIN 3.3 G/DL (3.5-5.0); CALCIUM, SERUM 8.5 MG/DL (8.5-10.4); CHLORIDE, SERUM 97 MMOL/L (96-112); SODIUM, SERUM 134 MMOL/L (135-148)
[2016-11-16 09:46] LABS: BUN (BLOOD UREA NITROGEN) 91 MG/DL (6-23); CO2 (CARBON DIOXIDE) 22 MMOL/L (24-34); CREATININE 8.96 MG/DL (0.55-1.02); GFR AFRICAN AMERICAN 6 ML/MIN (>=60); GFR NON AFRICAN AMERICAN 5 ML/MIN (>=60); GLUCOSE, SERUM 170 MG/DL (60-99); PHOSPHORUS, SERUM 2.2 MG/DL (2.5-4.5); POTASSIUM, SERUM 5.7 MMOL/L (3.5-5.3)
[2016-11-18 08:28] LABS: BASOPHILS 0.6 %; BASOPHILS ABSOLUTE 0.05 10/3/uL (0.0-0.16); EOSINOPHILS 15.5 %; EOSINOPHILS ABSOLUTE 1.39 10/3/uL (0.0-0.53); HEMATOCRIT 30.4 % (36.0-48.0); HEMOGLOBIN 9.8 g/dL (12.0-16.0); IMMATURE GRANULOCYTES 0.7 %; IMMATURE GRANULOCYTES ABSOLUTE 0.06 10/3/uL (0.0-0.11); LYMPHOCYTES 12.4 %; LYMPHOCYTES ABSOLUTE 1.11 10/3/uL (0.67-4.30); MEAN CORPUS HGB CONC 32.2 g/dL (32.0-36.0); MEAN CORPUSCULAR HEMOGLOB 29.9 pg (26.0-34.0); MEAN CORPUSCULAR VOLUME 92.7 fL (80-100); MEAN PLATELET VOLUME 10.1 fL (9.2-13.0); MONOCYTES 11.9 %; MONOCYTES ABSOLUTE 1.07 10/3/uL (0.21-1.20); NEUTROPHILS 58.9 %; PLATELET COUNT 231 10/3/uL (150-400); RBC DISTRIBUTION WIDTH 16.9 % (12.0-16.0); RED CELL COUNT 3.28 10/6/uL (4.0-5.6)
[2016-11-18 08:48] LABS: ALBUMIN 3.4 G/DL (3.5-5.0); CHLORIDE, SERUM 100 MMOL/L (96-112); CO2 (CARBON DIOXIDE) 22 MMOL/L (24-34); PHOSPHORUS, SERUM 1.8 MG/DL (2.5-4.5); SODIUM, SERUM 133 MMOL/L (135-148)
[2016-11-18 08:50] LABS: BUN (BLOOD UREA NITROGEN) 82 MG/DL (6-23); CALCIUM, SERUM 9.5 MG/DL (8.5-10.4); CREATININE 7.77 MG/DL (0.55-1.02); GFR AFRICAN AMERICAN 8 ML/MIN (>=60); GFR NON AFRICAN AMERICAN 7 ML/MIN (>=60); GLUCOSE, SERUM 253 MG/DL (60-99); POTASSIUM, SERUM 6.3 MMOL/L (3.5-5.3)
[2016-11-19 08:07] LABS: ALBUMIN 3.3 G/DL (3.5-5.0); CALCIUM, SERUM 8.8 MG/DL (8.5-10.4); CHLORIDE, SERUM 99 MMOL/L (96-112); CO2 (CARBON DIOXIDE) 25 MMOL/L (24-34); GLUCOSE, SERUM 284 MG/DL (60-99); SODIUM, SERUM 135 MMOL/L (135-148)
[2016-11-19 08:08] LABS: BUN (BLOOD UREA NITROGEN) 69 MG/DL (6-23); CREATININE 6.05 MG/DL (0.55-1.02); GFR AFRICAN AMERICAN 10 ML/MIN (>=60); GFR NON AFRICAN AMERICAN 9 ML/MIN (>=60); POTASSIUM, SERUM 6.1 MMOL/L (3.5-5.3)
[2016-11-20 12:17] LABS: BASOPHILS 1.3 %; BASOPHILS ABSOLUTE 0.11 10/3/uL (0.0-0.16); EOSINOPHILS 21.1 %; EOSINOPHILS ABSOLUTE 1.72 10/3/uL (0.0-0.53); HEMATOCRIT 32.2 % (36.0-48.0); HEMOGLOBIN 10.5 g/dL (12.0-16.0); IMMATURE GRANULOCYTES 0.5 %; IMMATURE GRANULOCYTES ABSOLUTE 0.04 10/3/uL (0.0-0.11); LYMPHOCYTES 13.6 %; LYMPHOCYTES ABSOLUTE 1.11 10/3/uL (0.67-4.30); MEAN CORPUS HGB CONC 32.6 g/dL (32.0-36.0); MEAN CORPUSCULAR HEMOGLOB 29.7 pg (26.0-34.0); MEAN CORPUSCULAR VOLUME 91.2 fL (80-100); MEAN PLATELET VOLUME 9.6 fL (9.2-13.0); MONOCYTES 13.3 %; MONOCYTES ABSOLUTE 1.09 10/3/uL (0.21-1.20); NEUTROPHILS 50.2 %; PLATELET COUNT 232 10/3/uL (150-400); RBC DISTRIBUTION WIDTH 16.5 % (12.0-16.0); RED CELL COUNT 3.53 10/6/uL (4.0-5.6); WHITE BLOOD CELLS 8.2 10/3/uL (4.5-10.5)
[2016-11-20 12:18] LABS: MANUAL DIFF NO %
[2016-11-20 12:34] LABS: ALBUMIN 3.3 G/DL (3.5-5.0); BUN (BLOOD UREA NITROGEN) 64 MG/DL (6-23); CHLORIDE, SERUM 101 MMOL/L (96-112); CO2 (CARBON DIOXIDE) 23 MMOL/L (24-34); CREATININE 5.46 MG/DL (0.55-1.02); GFR AFRICAN AMERICAN 12 ML/MIN (>=60); GFR NON AFRICAN AMERICAN 10 ML/MIN (>=60); GLUCOSE, SERUM 189 MG/DL (60-99); PHOSPHORUS, SERUM 3.6 MG/DL (2.5-4.5); POTASSIUM, SERUM 6.4 MMOL/L (3.5-5.3); SODIUM, SERUM 134 MMOL/L (135-148)
[2016-11-21 08:11] LABS: BASOPHILS 1.2 %; EOSINOPHILS 22.3 %; EOSINOPHILS ABSOLUTE 1.83 10/3/uL (0.0-0.53); IMMATURE GRANULOCYTES 0.2 %; IMMATURE GRANULOCYTES ABSOLUTE 0.02 10/3/uL (0.0-0.11); LYMPHOCYTES 17.9 %; LYMPHOCYTES ABSOLUTE 1.47 10/3/uL (0.67-4.30); MANUAL DIFF NO %; MEAN CORPUS HGB CONC 32.4 g/dL (32.0-36.0); MEAN CORPUSCULAR HEMOGLOB 29.4 pg (26.0-34.0); MEAN CORPUSCULAR VOLUME 90.9 fL (80-100); MEAN PLATELET VOLUME 9.1 fL (9.2-13.0); MONOCYTES 13.8 %; MONOCYTES ABSOLUTE 1.13 10/3/uL (0.21-1.20); NEUTROPHILS 44.6 %; NEUTROPHILS ABSOLUTE 3.65 10/3/uL (2.02-8.40); PLATELET COUNT 233 10/3/uL (150-400); RBC DISTRIBUTION WIDTH 16.5 % (12.0-16.0); RED CELL COUNT 3.74 10/6/uL (4.0-5.6); WHITE BLOOD CELLS 8.2 10/3/uL (4.5-10.5)
[2016-11-21 08:21] LABS: ALBUMIN 3.6 G/DL (3.5-5.0); BUN (BLOOD UREA NITROGEN) 50 MG/DL (6-23); CALCIUM, SERUM 9.5 MG/DL (8.5-10.4); CHLORIDE, SERUM 99 MMOL/L (96-112); CO2 (CARBON DIOXIDE) 26 MMOL/L (24-34); CREATININE 5.05 MG/DL (0.55-1.02); GFR AFRICAN AMERICAN 13 ML/MIN (>=60); GFR NON AFRICAN AMERICAN 11 ML/MIN (>=60); GLUCOSE, SERUM 263 MG/DL (60-99); POTASSIUM, SERUM 5.4 MMOL/L (3.5-5.3); SODIUM, SERUM 134 MMOL/L (135-148)
[2016-11-21 11:20] LABS: BUN (BLOOD UREA NITROGEN) 20 MG/DL (6-23); CHLORIDE, SERUM 98 MMOL/L (96-112); CO2 (CARBON DIOXIDE) 26 MMOL/L (24-34); CREATININE 2.41 MG/DL (0.55-1.02); GFR AFRICAN AMERICAN 31 ML/MIN (>=60); GFR NON AFRICAN AMERICAN 27 ML/MIN (>=60); GLUCOSE, SERUM 256 MG/DL (60-99); PHOSPHORUS, SERUM 1.9 MG/DL (2.5-4.5); POTASSIUM, SERUM 3.8 MMOL/L (3.5-5.3); SODIUM, SERUM 137 MMOL/L (135-148)
[2016-11-22 08:28] LABS: ALBUMIN 3.7 G/DL (3.5-5.0); CALCIUM, SERUM 8.7 MG/DL (8.5-10.4); CHLORIDE, SERUM 99 MMOL/L (96-112); SODIUM, SERUM 136 MMOL/L (135-148)
[2016-11-22 08:29] LABS: BUN (BLOOD UREA NITROGEN) 47 MG/DL (6-23); CO2 (CARBON DIOXIDE) 20 MMOL/L (24-34); CREATININE 5.09 MG/DL (0.55-1.02); GFR AFRICAN AMERICAN 13 ML/MIN (>=60); GFR NON AFRICAN AMERICAN 11 ML/MIN (>=60); GLUCOSE, SERUM 398 MG/DL (60-99); POTASSIUM, SERUM 5.2 MMOL/L (3.5-5.3)
[2016-11-23 08:01] LABS: HEMATOCRIT 34.1 % (36.0-48.0); HEMOGLOBIN 11.2 g/dL (12.0-16.0); MEAN CORPUS HGB CONC 32.8 g/dL (32.0-36.0); MEAN CORPUSCULAR HEMOGLOB 29.9 pg (26.0-34.0); MEAN CORPUSCULAR VOLUME 90.9 fL (80-100); MEAN PLATELET VOLUME 9.6 fL (9.2-13.0); PLATELET COUNT 246 10/3/uL (150-400); RBC DISTRIBUTION WIDTH 15.6 % (12.0-16.0); RED CELL COUNT 3.75 10/6/uL (4.0-5.6); WHITE BLOOD CELLS 8.5 10/3/uL (4.5-10.5)
[2016-11-23 08:03] LABS: MANUAL DIFF YES %
[2016-11-23 08:14] LABS: ALBUMIN 3.7 G/DL (3.5-5.0); BUN (BLOOD UREA NITROGEN) 72 MG/DL (6-23); CALCIUM, SERUM 9.2 MG/DL (8.5-10.4); CHLORIDE, SERUM 102 MMOL/L (96-112); CO2 (CARBON DIOXIDE) 24 MMOL/L (24-34); CREATININE 6.43 MG/DL (0.55-1.02); GFR AFRICAN AMERICAN 9 ML/MIN (>=60); GFR NON AFRICAN AMERICAN 8 ML/MIN (>=60); GLUCOSE, SERUM 66 MG/DL (60-99); POTASSIUM, SERUM 4.2 MMOL/L (3.5-5.3); SODIUM, SERUM 138 MMOL/L (135-148)
[2016-11-23 08:28] LABS: EOSINOPHILS 23 %; EOSINOPHILS ABSOLUTE (CALC) 1.96 10/3/uL (0.0-0.53); LYMPHOCYTES 14 %; LYMPHOCYTES ABSOLUTE (CALC) 1.19 10/3/uL (0.67-4.30); MONOCYTES 10 %; MONOCYTES ABSOLUTE (CALC) 0.85 10/3/uL (0.21-1.20); NEUTROPHILS ABSOLUTE (CALC) 4.51 10/3/uL (2.02-8.40); PLATELET ESTIMATE ADQ (ADEQUATE); SEGMENTED NEUTROPHIL (0) 53 %; TOTAL NUCLEATED CELLS 100
[2016-11-23 08:29] LABS: RBC MORPHOLOGY NORM (NORMAL)
[2016-11-24 09:03] LABS: ALBUMIN 3.8 G/DL (3.5-5.0); CALCIUM, SERUM 9.7 MG/DL (8.5-10.4); CHLORIDE, SERUM 103 MMOL/L (96-112); CO2 (CARBON DIOXIDE) 24 MMOL/L (24-34); SODIUM, SERUM 139 MMOL/L (135-148)
[2016-11-24 09:06] LABS: BUN (BLOOD UREA NITROGEN) 41 MG/DL (6-23); CREATININE 5.22 MG/DL (0.55-1.02); GFR AFRICAN AMERICAN 12 ML/MIN (>=60); GFR NON AFRICAN AMERICAN 11 ML/MIN (>=60); GLUCOSE, SERUM 164 MG/DL (60-99); POTASSIUM, SERUM 5.3 MMOL/L (3.5-5.3)
[2016-11-25 23:40] LABS: HEMATOCRIT 33.1 % (36.0-48.0); HEMOGLOBIN 11.1 g/dL (12.0-16.0); MEAN CORPUS HGB CONC 33.5 g/dL (32.0-36.0); MEAN CORPUSCULAR HEMOGLOB 29.6 pg (26.0-34.0); MEAN CORPUSCULAR VOLUME 88.3 fL (80-100); MEAN PLATELET VOLUME 9.7 fL (9.2-13.0); PLATELET COUNT 237 10/3/uL (150-400); RBC DISTRIBUTION WIDTH 15.5 % (12.0-16.0); RED CELL COUNT 3.75 10/6/uL (4.0-5.6); WHITE BLOOD CELLS 7.8 10/3/uL (4.5-10.5)
[2016-11-25 23:41] LABS: MANUAL DIFF YES %
[2016-11-25 23:57] LABS: ALBUMIN 3.9 G/DL (3.5-5.0); CALCIUM, SERUM 9.2 MG/DL (8.5-10.4); CHLORIDE, SERUM 98 MMOL/L (96-112); CO2 (CARBON DIOXIDE) 20 MMOL/L (24-34); PHOSPHORUS, SERUM 4.9 MG/DL (2.5-4.5); POTASSIUM, SERUM 5.5 MMOL/L (3.5-5.3)
[2016-11-25 23:58] LABS: BUN (BLOOD UREA NITROGEN) 80 MG/DL (6-23); CREATININE 8.06 MG/DL (0.55-1.02); GFR AFRICAN AMERICAN 7 ML/MIN (>=60); GFR NON AFRICAN AMERICAN 6 ML/MIN (>=60); GLUCOSE, SERUM 216 MG/DL (60-99); SODIUM, SERUM 132 MMOL/L (135-148)
[2016-11-26 00:08] LABS: BASOPHILS 3 %; BASOPHILS ABSOLUTE (CALC) 0.23 10/3/uL (0.0-0.16); EOSINOPHILS 23 %; EOSINOPHILS ABSOLUTE (CALC) 1.79 10/3/uL (0.0-0.53); LYMPHOCYTES 25 %; LYMPHOCYTES ABSOLUTE (CALC) 1.95 10/3/uL (0.67-4.30); MONOCYTES 8 %; MONOCYTES ABSOLUTE (CALC) 0.62 10/3/uL (0.21-1.20); PLATELET ESTIMATE ADQ (ADEQUATE); RBC MORPHOLOGY NORM (NORMAL); SEGMENTED NEUTROPHIL (0) 41 %; TOTAL NUCLEATED CELLS 100
[2016-11-28 13:40] LABS: BASOPHILS 0.7 %; BASOPHILS ABSOLUTE 0.06 10/3/uL (0.0-0.16); EOSINOPHILS 21.7 %; EOSINOPHILS ABSOLUTE 1.74 10/3/uL (0.0-0.53); HEMATOCRIT 31.5 % (36.0-48.0); HEMOGLOBIN 10.3 g/dL (12.0-16.0); IMMATURE GRANULOCYTES 0.1 %; IMMATURE GRANULOCYTES ABSOLUTE 0.01 10/3/uL (0.0-0.11); LYMPHOCYTES 12.4 %; LYMPHOCYTES ABSOLUTE 0.99 10/3/uL (0.67-4.30); MEAN CORPUS HGB CONC 32.7 g/dL (32.0-36.0); MEAN CORPUSCULAR HEMOGLOB 29.3 pg (26.0-34.0); MEAN CORPUSCULAR VOLUME 89.5 fL (80-100); MEAN PLATELET VOLUME 10.1 fL (9.2-13.0); MONOCYTES ABSOLUTE 0.64 10/3/uL (0.21-1.20); NEUTROPHILS 57.1 %; NEUTROPHILS ABSOLUTE 4.57 10/3/uL (2.02-8.40); PLATELET COUNT 220 10/3/uL (150-400); RBC DISTRIBUTION WIDTH 15.5 % (12.0-16.0); RED CELL COUNT 3.52 10/6/uL (4.0-5.6)
[2016-11-28 13:42] LABS: MANUAL DIFF NO %
[2016-11-28 13:51] LABS: ALBUMIN 3.7 G/DL (3.5-5.0); CHLORIDE, SERUM 99 MMOL/L (96-112); CREATININE 8.21 MG/DL (0.55-1.02); GFR AFRICAN AMERICAN 7 ML/MIN (>=60); GFR NON AFRICAN AMERICAN 6 ML/MIN (>=60); PHOSPHORUS, SERUM 5.4 MG/DL (2.5-4.5); POTASSIUM, SERUM 5.4 MMOL/L (3.5-5.3); SODIUM, SERUM 136 MMOL/L (135-148)
[2016-11-28 13:52] LABS: BUN (BLOOD UREA NITROGEN) 92 MG/DL (6-23); CO2 (CARBON DIOXIDE) 25 MMOL/L (24-34); GLUCOSE, SERUM 111 MG/DL (60-99)
[2016-11-30 08:02] LABS: HEMATOCRIT 31.8 % (36.0-48.0); HEMOGLOBIN 10.4 g/dL (12.0-16.0); MEAN CORPUS HGB CONC 32.7 g/dL (32.0-36.0); MEAN CORPUSCULAR HEMOGLOB 29.5 pg (26.0-34.0); MEAN CORPUSCULAR VOLUME 90.1 fL (80-100); MEAN PLATELET VOLUME 9.8 fL (9.2-13.0); PLATELET COUNT 236 10/3/uL (150-400); RBC DISTRIBUTION WIDTH 15.1 % (12.0-16.0); RED CELL COUNT 3.53 10/6/uL (4.0-5.6); WHITE BLOOD CELLS 6.5 10/3/uL (4.5-10.5)
[2016-11-30 08:08] LABS: MANUAL DIFF YES %
[2016-11-30 08:14] LABS: ALBUMIN 3.6 G/DL (3.5-5.0); BUN (BLOOD UREA NITROGEN) 82 MG/DL (6-23); CHLORIDE, SERUM 100 MMOL/L (96-112); CO2 (CARBON DIOXIDE) 23 MMOL/L (24-34); CREATININE 8.29 MG/DL (0.55-1.02); GFR AFRICAN AMERICAN 7 ML/MIN (>=60); GFR NON AFRICAN AMERICAN 6 ML/MIN (>=60); GLUCOSE, SERUM 338 MG/DL (60-99); PHOSPHORUS, SERUM 5.4 MG/DL (2.5-4.5); POTASSIUM, SERUM 5.4 MMOL/L (3.5-5.3); SODIUM, SERUM 136 MMOL/L (135-148)
[2016-11-30 08:25] LABS: BASOPHILS 1 %; BASOPHILS ABSOLUTE (CALC) 0.07 10/3/uL (0.0-0.16); EOSINOPHILS 25 %; EOSINOPHILS ABSOLUTE (CALC) 1.63 10/3/uL (0.0-0.53); LYMPHOCYTES 11 %; LYMPHOCYTES ABSOLUTE (CALC) 0.72 10/3/uL (0.67-4.30); MONOCYTES 13 %; MONOCYTES ABSOLUTE (CALC) 0.85 10/3/uL (0.21-1.20); NEUTROPHILS ABSOLUTE (CALC) 3.25 10/3/uL (2.02-8.40); PLATELET ESTIMATE ADQ (ADEQUATE); RBC MORPHOLOGY NORM (NORMAL); SEGMENTED NEUTROPHIL (0) 50 %; TOTAL NUCLEATED CELLS 100
[2016-12-02 03:26] LABS: HEMATOCRIT 32.9 % (36.0-48.0); HEMOGLOBIN 10.8 g/dL (12.0-16.0); MEAN CORPUS HGB CONC 32.8 g/dL (32.0-36.0); MEAN CORPUSCULAR HEMOGLOB 29.6 pg (26.0-34.0); MEAN CORPUSCULAR VOLUME 90.1 fL (80-100); MEAN PLATELET VOLUME 9.5 fL (9.2-13.0); PLATELET COUNT 235 10/3/uL (150-400); RBC DISTRIBUTION WIDTH 14.9 % (12.0-16.0); RED CELL COUNT 3.65 10/6/uL (4.0-5.6); WHITE BLOOD CELLS 7.4 10/3/uL (4.5-10.5)
[2016-12-02 03:42] LABS: MANUAL DIFF YES %
[2016-12-02 03:48] LABS: ALBUMIN 4.1 G/DL (3.5-5.0); CALCIUM, SERUM 9.3 MG/DL (8.5-10.4); CHLORIDE, SERUM 99 MMOL/L (96-112); CO2 (CARBON DIOXIDE) 23 MMOL/L (24-34); CREATININE 8.25 MG/DL (0.55-1.02); GFR AFRICAN AMERICAN 7 ML/MIN (>=60); GFR NON AFRICAN AMERICAN 6 ML/MIN (>=60); PHOSPHORUS, SERUM 4.9 MG/DL (2.5-4.5); POTASSIUM, SERUM 5.2 MMOL/L (3.5-5.3); SODIUM, SERUM 136 MMOL/L (135-148)
[2016-12-02 03:50] LABS: BUN (BLOOD UREA NITROGEN) 75 MG/DL (6-23); GLUCOSE, SERUM 200 MG/DL (60-99)
[2016-12-02 03:51] LABS: BAND NEUTROPHILS 2 %; EOSINOPHILS 36 %; EOSINOPHILS ABSOLUTE (CALC) 2.66 10/3/uL (0.0-0.53); LYMPHOCYTES 16 %; LYMPHOCYTES ABSOLUTE (CALC) 1.18 10/3/uL (0.67-4.30); MONOCYTES 3 %; MONOCYTES ABSOLUTE (CALC) 0.22 10/3/uL (0.21-1.20); NEUTROPHILS ABSOLUTE (CALC) 3.33 10/3/uL (2.02-8.40); SEGMENTED NEUTROPHIL (0) 43 %; TOTAL NUCLEATED CELLS 100
[2016-12-03 08:35] LABS: HEMOGLOBIN 10.4 g/dL (12.0-16.0); MEAN CORPUS HGB CONC 33.5 g/dL (32.0-36.0); MEAN CORPUSCULAR HEMOGLOB 29.6 pg (26.0-34.0); MEAN CORPUSCULAR VOLUME 88.3 fL (80-100); MEAN PLATELET VOLUME 10.5 fL (9.2-13.0); PLATELET COUNT 231 10/3/uL (150-400); RBC DISTRIBUTION WIDTH 14.7 % (12.0-16.0); RED CELL COUNT 3.51 10/6/uL (4.0-5.6); WHITE BLOOD CELLS 6.5 10/3/uL (4.5-10.5)
[2016-12-03 08:37] LABS: MANUAL DIFF YES %
[2016-12-03 08:52] LABS: ALBUMIN 3.7 G/DL (3.5-5.0); CALCIUM, SERUM 9.1 MG/DL (8.5-10.4); CHLORIDE, SERUM 100 MMOL/L (96-112); CO2 (CARBON DIOXIDE) 23 MMOL/L (24-34); PHOSPHORUS, SERUM 5.2 MG/DL (2.5-4.5); POTASSIUM, SERUM 5.4 MMOL/L (3.5-5.3); SODIUM, SERUM 135 MMOL/L (135-148)
[2016-12-03 08:53] LABS: BUN (BLOOD UREA NITROGEN) 94 MG/DL (6-23); CREATININE 9.89 MG/DL (0.55-1.02); GFR AFRICAN AMERICAN 6 ML/MIN (>=60); GFR NON AFRICAN AMERICAN 5 ML/MIN (>=60); GLUCOSE, SERUM 75 MG/DL (60-99)
[2016-12-03 09:33] LABS: EOSINOPHILS 25 %; EOSINOPHILS ABSOLUTE (CALC) 1.63 10/3/uL (0.0-0.53); LYMPHOCYTES 27 %; LYMPHOCYTES ABSOLUTE (CALC) 1.76 10/3/uL (0.67-4.30); MONOCYTES 9 %; MONOCYTES ABSOLUTE (CALC) 0.59 10/3/uL (0.21-1.20); NEUTROPHILS ABSOLUTE (CALC) 2.54 10/3/uL (2.02-8.40); PLATELET ESTIMATE ADQ (ADEQUATE); SEGMENTED NEUTROPHIL (0) 39 %; TOTAL NUCLEATED CELLS 100
[2016-12-03 09:34] LABS: RBC MORPHOLOGY NORM (NORMAL)
[2016-12-04 07:29] LABS: ALBUMIN 3.6 G/DL (3.5-5.0); CHLORIDE, SERUM 99 MMOL/L (96-112); CO2 (CARBON DIOXIDE) 23 MMOL/L (24-34); PHOSPHORUS, SERUM 4.3 MG/DL (2.5-4.5); POTASSIUM, SERUM 5.6 MMOL/L (3.5-5.3); SODIUM, SERUM 135 MMOL/L (135-148)
[2016-12-04 07:30] LABS: BUN (BLOOD UREA NITROGEN) 58 MG/DL (6-23); CREATININE 7.37 MG/DL (0.55-1.02); GFR AFRICAN AMERICAN 8 ML/MIN (>=60); GFR NON AFRICAN AMERICAN 7 ML/MIN (>=60); GLUCOSE, SERUM 349 MG/DL (60-99)
[2016-12-05 08:14] LABS: BASOPHILS 1.8 %; BASOPHILS ABSOLUTE 0.11 10/3/uL (0.0-0.16); EOSINOPHILS 31.2 %; EOSINOPHILS ABSOLUTE 1.95 10/3/uL (0.0-0.53); HEMATOCRIT 31.2 % (36.0-48.0); HEMOGLOBIN 10.3 g/dL (12.0-16.0); IMMATURE GRANULOCYTES 0.2 %; IMMATURE GRANULOCYTES ABSOLUTE 0.01 10/3/uL (0.0-0.11); LYMPHOCYTES 22.4 %; MEAN CORPUSCULAR HEMOGLOB 29.2 pg (26.0-34.0); MEAN CORPUSCULAR VOLUME 88.4 fL (80-100); MEAN PLATELET VOLUME 9.6 fL (9.2-13.0); MONOCYTES 10.1 %; MONOCYTES ABSOLUTE 0.63 10/3/uL (0.21-1.20); NEUTROPHILS 34.3 %; NEUTROPHILS ABSOLUTE 2.15 10/3/uL (2.02-8.40); PLATELET COUNT 195 10/3/uL (150-400); RBC DISTRIBUTION WIDTH 14.9 % (12.0-16.0); RED CELL COUNT 3.53 10/6/uL (4.0-5.6); WHITE BLOOD CELLS 6.3 10/3/uL (4.5-10.5)
[2016-12-05 08:20] LABS: MANUAL DIFF NO %
[2016-12-05 08:31] LABS: ALBUMIN 3.7 G/DL (3.5-5.0); BUN (BLOOD UREA NITROGEN) 81 MG/DL (6-23); CALCIUM, SERUM 9.7 MG/DL (8.5-10.4); CHLORIDE, SERUM 99 MMOL/L (96-112); CO2 (CARBON DIOXIDE) 24 MMOL/L (24-34); PHOSPHORUS, SERUM 4.6 MG/DL (2.5-4.5); POTASSIUM, SERUM 5.6 MMOL/L (3.5-5.3); SODIUM, SERUM 135 MMOL/L (135-148)
[2016-12-05 08:32] LABS: GFR AFRICAN AMERICAN 6 ML/MIN (>=60); GFR NON AFRICAN AMERICAN 6 ML/MIN (>=60); GLUCOSE, SERUM 156 MG/DL (60-99)
[2016-12-07 11:37] LABS: ALBUMIN 3.8 G/DL (3.5-5.0); BUN (BLOOD UREA NITROGEN) 68 MG/DL (6-23); CALCIUM, SERUM 8.9 MG/DL (8.5-10.4); CHLORIDE, SERUM 98 MMOL/L (96-112); CO2 (CARBON DIOXIDE) 25 MMOL/L (24-34); PHOSPHORUS, SERUM 4.3 MG/DL (2.5-4.5); POTASSIUM, SERUM 5.3 MMOL/L (3.5-5.3); SODIUM, SERUM 135 MMOL/L (135-148)
[2016-12-07 11:38] LABS: CREATININE 7.97 MG/DL (0.55-1.02); GFR AFRICAN AMERICAN 7 ML/MIN (>=60); GFR NON AFRICAN AMERICAN 6 ML/MIN (>=60); GLUCOSE, SERUM 226 MG/DL (60-99)
[2016-12-07 11:43] LABS: BASOPHILS 1.4 %; BASOPHILS ABSOLUTE 0.08 10/3/uL (0.0-0.16); EOSINOPHILS 29.5 %; EOSINOPHILS ABSOLUTE 1.65 10/3/uL (0.0-0.53); HEMOGLOBIN 11.4 g/dL (12.0-16.0); IMMATURE GRANULOCYTES 0.2 %; IMMATURE GRANULOCYTES ABSOLUTE 0.01 10/3/uL (0.0-0.11); LYMPHOCYTES 20.5 %; LYMPHOCYTES ABSOLUTE 1.15 10/3/uL (0.67-4.30); MEAN CORPUS HGB CONC 33.5 g/dL (32.0-36.0); MEAN CORPUSCULAR HEMOGLOB 29.9 pg (26.0-34.0); MEAN CORPUSCULAR VOLUME 89.2 fL (80-100); MEAN PLATELET VOLUME 10.3 fL (9.2-13.0); MONOCYTES 10.4 %; MONOCYTES ABSOLUTE 0.58 10/3/uL (0.21-1.20); NEUTROPHILS ABSOLUTE 2.13 10/3/uL (2.02-8.40); PLATELET COUNT 191 10/3/uL (150-400); RBC DISTRIBUTION WIDTH 14.5 % (12.0-16.0); RED CELL COUNT 3.81 10/6/uL (4.0-5.6); WHITE BLOOD CELLS 5.6 10/3/uL (4.5-10.5)
[2016-12-07 11:44] LABS: MANUAL DIFF NO %
[2016-12-09 05:35] LABS: BASOPHILS 1.8 %; BASOPHILS ABSOLUTE 0.08 10/3/uL (0.0-0.16); EOSINOPHILS 26.8 %; EOSINOPHILS ABSOLUTE 1.21 10/3/uL (0.0-0.53); HEMOGLOBIN 9.2 g/dL (12.0-16.0); IMMATURE GRANULOCYTES 0.2 %; IMMATURE GRANULOCYTES ABSOLUTE 0.01 10/3/uL (0.0-0.11); LYMPHOCYTES 28.2 %; LYMPHOCYTES ABSOLUTE 1.27 10/3/uL (0.67-4.30); MEAN CORPUS HGB CONC 33.1 g/dL (32.0-36.0); MEAN CORPUSCULAR HEMOGLOB 30.1 pg (26.0-34.0); MEAN CORPUSCULAR VOLUME 90.8 fL (80-100); MEAN PLATELET VOLUME 10.1 fL (9.2-13.0); MONOCYTES 10.2 %; MONOCYTES ABSOLUTE 0.46 10/3/uL (0.21-1.20); NEUTROPHILS 32.8 %; NEUTROPHILS ABSOLUTE 1.48 10/3/uL (2.02-8.40); PLATELET COUNT 165 10/3/uL (150-400); RBC DISTRIBUTION WIDTH 14.6 % (12.0-16.0); RED CELL COUNT 3.06 10/6/uL (4.0-5.6); WHITE BLOOD CELLS 4.5 10/3/uL (4.5-10.5)
[2016-12-09 05:42] LABS: HEMATOCRIT 27.8 % (36.0-48.0); MANUAL DIFF NO %
[2016-12-09 05:51] LABS: ALBUMIN 3.4 G/DL (3.5-5.0); CALCIUM, SERUM 8.5 MG/DL (8.5-10.4); CHLORIDE, SERUM 104 MMOL/L (96-112); CO2 (CARBON DIOXIDE) 25 MMOL/L (24-34); PHOSPHORUS, SERUM 3.7 MG/DL (2.5-4.5); POTASSIUM, SERUM 5.7 MMOL/L (3.5-5.3); SODIUM, SERUM 138 MMOL/L (135-148)
[2016-12-09 05:54] LABS: BUN (BLOOD UREA NITROGEN) 53 MG/DL (6-23); CREATININE 7.23 MG/DL (0.55-1.02); GFR AFRICAN AMERICAN 8 ML/MIN (>=60); GFR NON AFRICAN AMERICAN 7 ML/MIN (>=60); GLUCOSE, SERUM 284 MG/DL (60-99)
[2016-12-10 08:18] LABS: BASOPHILS 1.5 %; BASOPHILS ABSOLUTE 0.08 10/3/uL (0.0-0.16); EOSINOPHILS 26.3 %; HEMATOCRIT 28.7 % (36.0-48.0); HEMOGLOBIN 9.5 g/dL (12.0-16.0); LYMPHOCYTES 26.1 %; LYMPHOCYTES ABSOLUTE 1.39 10/3/uL (0.67-4.30); MEAN CORPUS HGB CONC 33.1 g/dL (32.0-36.0); MEAN CORPUSCULAR HEMOGLOB 29.2 pg (26.0-34.0); MEAN CORPUSCULAR VOLUME 88.3 fL (80-100); MONOCYTES 7.7 %; MONOCYTES ABSOLUTE 0.41 10/3/uL (0.21-1.20); NEUTROPHILS 38.4 %; NEUTROPHILS ABSOLUTE 2.04 10/3/uL (2.02-8.40); PLATELET COUNT 182 10/3/uL (150-400); RBC DISTRIBUTION WIDTH 14.8 % (12.0-16.0); RED CELL COUNT 3.25 10/6/uL (4.0-5.6); WHITE BLOOD CELLS 5.3 10/3/uL (4.5-10.5)
[2016-12-10 08:22] LABS: MANUAL DIFF NO %
[2016-12-10 08:29] LABS: ALBUMIN 3.7 G/DL (3.5-5.0); CALCIUM, SERUM 9.2 MG/DL (8.5-10.4); CHLORIDE, SERUM 106 MMOL/L (96-112); CO2 (CARBON DIOXIDE) 23 MMOL/L (24-34); PHOSPHORUS, SERUM 3.9 MG/DL (2.5-4.5); POTASSIUM, SERUM 5.7 MMOL/L (3.5-5.3); SODIUM, SERUM 138 MMOL/L (135-148)
[2016-12-10 08:33] LABS: BUN (BLOOD UREA NITROGEN) 66 MG/DL (6-23); CREATININE 8.53 MG/DL (0.55-1.02); GFR AFRICAN AMERICAN 7 ML/MIN (>=60); GFR NON AFRICAN AMERICAN 6 ML/MIN (>=60); GLUCOSE, SERUM 129 MG/DL (60-99)
[2016-12-12 07:35] LABS: BASOPHILS 1.9 %; EOSINOPHILS 18.8 %; EOSINOPHILS ABSOLUTE 1.01 10/3/uL (0.0-0.53); HEMATOCRIT 28.8 % (36.0-48.0); HEMOGLOBIN 9.4 g/dL (12.0-16.0); IMMATURE GRANULOCYTES 0.2 %; IMMATURE GRANULOCYTES ABSOLUTE 0.01 10/3/uL (0.0-0.11); LYMPHOCYTES 31.2 %; LYMPHOCYTES ABSOLUTE 1.67 10/3/uL (0.67-4.30); MANUAL DIFF NO %; MEAN CORPUS HGB CONC 32.6 g/dL (32.0-36.0); MEAN CORPUSCULAR HEMOGLOB 29.1 pg (26.0-34.0); MEAN CORPUSCULAR VOLUME 89.2 fL (80-100); MEAN PLATELET VOLUME 9.8 fL (9.2-13.0); MONOCYTES 9.7 %; MONOCYTES ABSOLUTE 0.52 10/3/uL (0.21-1.20); NEUTROPHILS 38.2 %; NEUTROPHILS ABSOLUTE 2.05 10/3/uL (2.02-8.40); PLATELET COUNT 187 10/3/uL (150-400); RBC DISTRIBUTION WIDTH 14.8 % (12.0-16.0); RED CELL COUNT 3.23 10/6/uL (4.0-5.6); WHITE BLOOD CELLS 5.4 10/3/uL (4.5-10.5)
[2016-12-12 07:45] LABS: ALBUMIN 3.3 G/DL (3.5-5.0); CALCIUM, SERUM 8.9 MG/DL (8.5-10.4); CHLORIDE, SERUM 103 MMOL/L (96-112); CO2 (CARBON DIOXIDE) 24 MMOL/L (24-34); PHOSPHORUS, SERUM 3.8 MG/DL (2.5-4.5); POTASSIUM, SERUM 5.3 MMOL/L (3.5-5.3); SODIUM, SERUM 138 MMOL/L (135-148)
[2016-12-12 07:46] LABS: BUN (BLOOD UREA NITROGEN) 59 MG/DL (6-23); CREATININE 7.56 MG/DL (0.55-1.02); GFR AFRICAN AMERICAN 8 ML/MIN (>=60); GFR NON AFRICAN AMERICAN 7 ML/MIN (>=60); GLUCOSE, SERUM 178 MG/DL (60-99)
[2016-12-14 07:35] LABS: BASOPHILS 1.8 %; BASOPHILS ABSOLUTE 0.09 10/3/uL (0.0-0.16); EOSINOPHILS 18.2 %; EOSINOPHILS ABSOLUTE 0.89 10/3/uL (0.0-0.53); HEMATOCRIT 27.5 % (36.0-48.0); HEMOGLOBIN 9.2 g/dL (12.0-16.0); IMMATURE GRANULOCYTES 0.2 %; IMMATURE GRANULOCYTES ABSOLUTE 0.01 10/3/uL (0.0-0.11); LYMPHOCYTES 29.6 %; LYMPHOCYTES ABSOLUTE 1.45 10/3/uL (0.67-4.30); MEAN CORPUS HGB CONC 33.5 g/dL (32.0-36.0); MEAN CORPUSCULAR HEMOGLOB 29.5 pg (26.0-34.0); MEAN CORPUSCULAR VOLUME 88.1 fL (80-100); MONOCYTES ABSOLUTE 0.49 10/3/uL (0.21-1.20); NEUTROPHILS 40.2 %; NEUTROPHILS ABSOLUTE 1.97 10/3/uL (2.02-8.40); PLATELET COUNT 181 10/3/uL (150-400); RBC DISTRIBUTION WIDTH 14.5 % (12.0-16.0); RED CELL COUNT 3.12 10/6/uL (4.0-5.6); WHITE BLOOD CELLS 4.9 10/3/uL (4.5-10.5)
[2016-12-14 07:38] LABS: MANUAL DIFF NO %
[2016-12-14 07:54] LABS: ALBUMIN 3.3 G/DL (3.5-5.0); CALCIUM, SERUM 8.9 MG/DL (8.5-10.4); CHLORIDE, SERUM 103 MMOL/L (96-112); CO2 (CARBON DIOXIDE) 26 MMOL/L (24-34); CREATININE 7.99 MG/DL (0.55-1.02); GFR AFRICAN AMERICAN 7 ML/MIN (>=60); GFR NON AFRICAN AMERICAN 6 ML/MIN (>=60); SODIUM, SERUM 137 MMOL/L (135-148)
[2016-12-14 07:55] LABS: BUN (BLOOD UREA NITROGEN) 65 MG/DL (6-23); GLUCOSE, SERUM 138 MG/DL (60-99); PHOSPHORUS, SERUM 4.9 MG/DL (2.5-4.5)
[2016-12-17 08:22] LABS: BASOPHILS 0.8 %; BASOPHILS ABSOLUTE 0.04 10/3/uL (0.0-0.16); EOSINOPHILS 13.4 %; EOSINOPHILS ABSOLUTE 0.63 10/3/uL (0.0-0.53); HEMATOCRIT 27.1 % (36.0-48.0); IMMATURE GRANULOCYTES 0.2 %; IMMATURE GRANULOCYTES ABSOLUTE 0.01 10/3/uL (0.0-0.11); LYMPHOCYTES 28.2 %; LYMPHOCYTES ABSOLUTE 1.33 10/3/uL (0.67-4.30); MEAN CORPUS HGB CONC 33.2 g/dL (32.0-36.0); MEAN CORPUSCULAR HEMOGLOB 29.2 pg (26.0-34.0); MEAN PLATELET VOLUME 9.7 fL (9.2-13.0); MONOCYTES 11.7 %; MONOCYTES ABSOLUTE 0.55 10/3/uL (0.21-1.20); NEUTROPHILS 45.7 %; NEUTROPHILS ABSOLUTE 2.15 10/3/uL (2.02-8.40); PLATELET COUNT 184 10/3/uL (150-400); RBC DISTRIBUTION WIDTH 14.6 % (12.0-16.0); RED CELL COUNT 3.08 10/6/uL (4.0-5.6); WHITE BLOOD CELLS 4.7 10/3/uL (4.5-10.5)
[2016-12-17 08:24] LABS: MANUAL DIFF NO %
[2016-12-17 08:38] LABS: ALBUMIN 3.7 G/DL (3.5-5.0); CALCIUM, SERUM 9.4 MG/DL (8.5-10.4); CHLORIDE, SERUM 100 MMOL/L (96-112); CO2 (CARBON DIOXIDE) 25 MMOL/L (24-34); PHOSPHORUS, SERUM 4.1 MG/DL (2.5-4.5); POTASSIUM, SERUM 5.4 MMOL/L (3.5-5.3); SODIUM, SERUM 135 MMOL/L (135-148)
[2016-12-17 08:40] LABS: BUN (BLOOD UREA NITROGEN) 78 MG/DL (6-23); CREATININE 8.68 MG/DL (0.55-1.02); GFR AFRICAN AMERICAN 7 ML/MIN (>=60); GFR NON AFRICAN AMERICAN 6 ML/MIN (>=60)
[2016-12-17 08:41] LABS: GLUCOSE, SERUM 73 MG/DL (60-99)
[2016-12-19 08:08] LABS: BASOPHILS 1.9 %; BASOPHILS ABSOLUTE 0.09 10/3/uL (0.0-0.16); EOSINOPHILS 14.5 %; EOSINOPHILS ABSOLUTE 0.68 10/3/uL (0.0-0.53); HEMATOCRIT 28.8 % (36.0-48.0); HEMOGLOBIN 9.5 g/dL (12.0-16.0); IMMATURE GRANULOCYTES 0.2 %; IMMATURE GRANULOCYTES ABSOLUTE 0.01 10/3/uL (0.0-0.11); LYMPHOCYTES 31.6 %; LYMPHOCYTES ABSOLUTE 1.48 10/3/uL (0.67-4.30); MEAN CORPUSCULAR HEMOGLOB 29.1 pg (26.0-34.0); MEAN CORPUSCULAR VOLUME 88.1 fL (80-100); MEAN PLATELET VOLUME 9.5 fL (9.2-13.0); MONOCYTES 13.7 %; MONOCYTES ABSOLUTE 0.64 10/3/uL (0.21-1.20); NEUTROPHILS 38.1 %; NEUTROPHILS ABSOLUTE 1.78 10/3/uL (2.02-8.40); PLATELET COUNT 194 10/3/uL (150-400); RBC DISTRIBUTION WIDTH 14.3 % (12.0-16.0); RED CELL COUNT 3.27 10/6/uL (4.0-5.6); WHITE BLOOD CELLS 4.7 10/3/uL (4.5-10.5)
[2016-12-19 08:12] LABS: MANUAL DIFF NO %
[2016-12-19 08:16] LABS: ALBUMIN 3.6 G/DL (3.5-5.0); BUN (BLOOD UREA NITROGEN) 58 MG/DL (6-23); CALCIUM, SERUM 9.3 MG/DL (8.5-10.4); CHLORIDE, SERUM 100 MMOL/L (96-112); CO2 (CARBON DIOXIDE) 25 MMOL/L (24-34); CREATININE 8.51 MG/DL (0.55-1.02); GFR AFRICAN AMERICAN 7 ML/MIN (>=60); GFR NON AFRICAN AMERICAN 6 ML/MIN (>=60); GLUCOSE, SERUM 158 MG/DL (60-99); PHOSPHORUS, SERUM 3.6 MG/DL (2.5-4.5); POTASSIUM, SERUM 4.8 MMOL/L (3.5-5.3); SODIUM, SERUM 137 MMOL/L (135-148)
[2016-12-21 08:04] LABS: BASOPHILS 1.4 %; BASOPHILS ABSOLUTE 0.07 10/3/uL (0.0-0.16); EOSINOPHILS 13.6 %; HEMATOCRIT 28.5 % (36.0-48.0); HEMOGLOBIN 9.5 g/dL (12.0-16.0); IMMATURE GRANULOCYTES 0.2 %; IMMATURE GRANULOCYTES ABSOLUTE 0.01 10/3/uL (0.0-0.11); LYMPHOCYTES 31.5 %; LYMPHOCYTES ABSOLUTE 1.62 10/3/uL (0.67-4.30); MANUAL DIFF NO %; MEAN CORPUS HGB CONC 33.3 g/dL (32.0-36.0); MEAN CORPUSCULAR HEMOGLOB 29.6 pg (26.0-34.0); MEAN CORPUSCULAR VOLUME 88.8 fL (80-100); MONOCYTES 12.4 %; MONOCYTES ABSOLUTE 0.64 10/3/uL (0.21-1.20); NEUTROPHILS 40.9 %; NEUTROPHILS ABSOLUTE 2.11 10/3/uL (2.02-8.40); PLATELET COUNT 218 10/3/uL (150-400); RBC DISTRIBUTION WIDTH 14.3 % (12.0-16.0); RED CELL COUNT 3.21 10/6/uL (4.0-5.6); WHITE BLOOD CELLS 5.2 10/3/uL (4.5-10.5)
[2016-12-21 08:19] LABS: ALBUMIN 3.7 G/DL (3.5-5.0); BUN (BLOOD UREA NITROGEN) 52 MG/DL (6-23); CALCIUM, SERUM 9.1 MG/DL (8.5-10.4); CHLORIDE, SERUM 101 MMOL/L (96-112); CO2 (CARBON DIOXIDE) 27 MMOL/L (24-34); CREATININE 8.44 MG/DL (0.55-1.02); GFR AFRICAN AMERICAN 7 ML/MIN (>=60); GFR NON AFRICAN AMERICAN 6 ML/MIN (>=60); GLUCOSE, SERUM 199 MG/DL (60-99); PHOSPHORUS, SERUM 3.8 MG/DL (2.5-4.5); POTASSIUM, SERUM 5.3 MMOL/L (3.5-5.3); SODIUM, SERUM 137 MMOL/L (135-148)
[2016-12-24 09:34] LABS: BASOPHILS 2.1 %; BASOPHILS ABSOLUTE 0.12 10/3/uL (0.0-0.16); EOSINOPHILS ABSOLUTE 0.91 10/3/uL (0.0-0.53); HEMATOCRIT 27.8 % (36.0-48.0); HEMOGLOBIN 9.2 g/dL (12.0-16.0); IMMATURE GRANULOCYTES 0.2 %; IMMATURE GRANULOCYTES ABSOLUTE 0.01 10/3/uL (0.0-0.11); LYMPHOCYTES 27.9 %; LYMPHOCYTES ABSOLUTE 1.58 10/3/uL (0.67-4.30); MEAN CORPUS HGB CONC 33.1 g/dL (32.0-36.0); MEAN CORPUSCULAR HEMOGLOB 29.2 pg (26.0-34.0); MEAN CORPUSCULAR VOLUME 88.3 fL (80-100); MEAN PLATELET VOLUME 10.1 fL (9.2-13.0); MONOCYTES 9.3 %; MONOCYTES ABSOLUTE 0.53 10/3/uL (0.21-1.20); NEUTROPHILS 44.5 %; NEUTROPHILS ABSOLUTE 2.52 10/3/uL (2.02-8.40); PLATELET COUNT 212 10/3/uL (150-400); RBC DISTRIBUTION WIDTH 14.3 % (12.0-16.0); RED CELL COUNT 3.15 10/6/uL (4.0-5.6); WHITE BLOOD CELLS 5.7 10/3/uL (4.5-10.5)
[2016-12-24 09:35] LABS: MANUAL DIFF NO %
[2016-12-24 09:48] LABS: ALBUMIN 3.9 G/DL (3.5-5.0); BUN (BLOOD UREA NITROGEN) 88 MG/DL (6-23); CALCIUM, SERUM 9.2 MG/DL (8.5-10.4); CHLORIDE, SERUM 103 MMOL/L (96-112); CO2 (CARBON DIOXIDE) 25 MMOL/L (24-34); CREATININE 9.69 MG/DL (0.55-1.02); GFR AFRICAN AMERICAN 6 ML/MIN (>=60); GFR NON AFRICAN AMERICAN 5 ML/MIN (>=60); GLUCOSE, SERUM 83 MG/DL (60-99); POTASSIUM, SERUM 5.5 MMOL/L (3.5-5.3); SODIUM, SERUM 137 MMOL/L (135-148)
[2016-12-24 09:49] LABS: PHOSPHORUS, SERUM 4.9 MG/DL (2.5-4.5)
[2016-12-25 15:24] LABS: BASOPHILS 1.4 %; BASOPHILS ABSOLUTE 0.08 10/3/uL (0.0-0.16); EOSINOPHILS 13.6 %; EOSINOPHILS ABSOLUTE 0.77 10/3/uL (0.0-0.53); HEMATOCRIT 28.9 % (36.0-48.0); HEMOGLOBIN 9.6 g/dL (12.0-16.0); IMMATURE GRANULOCYTES 0.2 %; IMMATURE GRANULOCYTES ABSOLUTE 0.01 10/3/uL (0.0-0.11); LYMPHOCYTES 24.6 %; MEAN CORPUS HGB CONC 33.2 g/dL (32.0-36.0); MEAN CORPUSCULAR HEMOGLOB 29.3 pg (26.0-34.0); MEAN CORPUSCULAR VOLUME 88.1 fL (80-100); MEAN PLATELET VOLUME 9.7 fL (9.2-13.0); MONOCYTES 10.9 %; MONOCYTES ABSOLUTE 0.62 10/3/uL (0.21-1.20); NEUTROPHILS 49.3 %; PLATELET COUNT 197 10/3/uL (150-400); RBC DISTRIBUTION WIDTH 14.1 % (12.0-16.0); RED CELL COUNT 3.28 10/6/uL (4.0-5.6); WHITE BLOOD CELLS 5.7 10/3/uL (4.5-10.5)
[2016-12-25 15:26] LABS: MANUAL DIFF NO %
[2016-12-25 15:37] LABS: ALBUMIN 4.2 G/DL (3.5-5.0); CALCIUM, SERUM 9.8 MG/DL (8.5-10.4); CHLORIDE, SERUM 104 MMOL/L (96-112); CO2 (CARBON DIOXIDE) 25 MMOL/L (24-34); GFR AFRICAN AMERICAN 8 ML/MIN (>=60); GFR NON AFRICAN AMERICAN 7 ML/MIN (>=60); GLUCOSE, SERUM 86 MG/DL (60-99); PHOSPHORUS, SERUM 4.5 MG/DL (2.5-4.5); POTASSIUM, SERUM 5.3 MMOL/L (3.5-5.3); SODIUM, SERUM 138 MMOL/L (135-148)
[2016-12-25 15:38] LABS: BUN (BLOOD UREA NITROGEN) 74 MG/DL (6-23)
[2016-12-26 08:25] LABS: BASOPHILS 1.7 %; BASOPHILS ABSOLUTE 0.09 10/3/uL (0.0-0.16); EOSINOPHILS 16.2 %; EOSINOPHILS ABSOLUTE 0.88 10/3/uL (0.0-0.53); HEMATOCRIT 27.5 % (36.0-48.0); HEMOGLOBIN 9.3 g/dL (12.0-16.0); IMMATURE GRANULOCYTES 0.2 %; IMMATURE GRANULOCYTES ABSOLUTE 0.01 10/3/uL (0.0-0.11); LYMPHOCYTES 30.6 %; LYMPHOCYTES ABSOLUTE 1.66 10/3/uL (0.67-4.30); MANUAL DIFF NO %; MEAN CORPUS HGB CONC 33.8 g/dL (32.0-36.0); MEAN CORPUSCULAR HEMOGLOB 29.1 pg (26.0-34.0); MEAN CORPUSCULAR VOLUME 85.9 fL (80-100); MEAN PLATELET VOLUME 10.3 fL (9.2-13.0); MONOCYTES 12.5 %; MONOCYTES ABSOLUTE 0.68 10/3/uL (0.21-1.20); NEUTROPHILS 38.8 %; NEUTROPHILS ABSOLUTE 2.11 10/3/uL (2.02-8.40); PLATELET COUNT 205 10/3/uL (150-400); RBC DISTRIBUTION WIDTH 14.3 % (12.0-16.0); WHITE BLOOD CELLS 5.4 10/3/uL (4.5-10.5)
[2016-12-26 08:51] LABS: CALCIUM, SERUM 9.4 MG/DL (8.5-10.4); CHLORIDE, SERUM 105 MMOL/L (96-112); CO2 (CARBON DIOXIDE) 24 MMOL/L (24-34); GFR AFRICAN AMERICAN 6 ML/MIN (>=60); GFR NON AFRICAN AMERICAN 5 ML/MIN (>=60); GLUCOSE, SERUM 85 MG/DL (60-99); PHOSPHORUS, SERUM 4.6 MG/DL (2.5-4.5); POTASSIUM, SERUM 5.3 MMOL/L (3.5-5.3); SODIUM, SERUM 141 MMOL/L (135-148)
[2016-12-26 08:52] LABS: BUN (BLOOD UREA NITROGEN) 87 MG/DL (6-23); CREATININE 9.16 MG/DL (0.55-1.02)
[2016-12-27 08:40] LABS: ALBUMIN 4.2 G/DL (3.5-5.0); CALCIUM, SERUM 9.5 MG/DL (8.5-10.4); CHLORIDE, SERUM 106 MMOL/L (96-112); CO2 (CARBON DIOXIDE) 22 MMOL/L (24-34); PHOSPHORUS, SERUM 3.8 MG/DL (2.5-4.5); POTASSIUM, SERUM 4.9 MMOL/L (3.5-5.3); SODIUM, SERUM 140 MMOL/L (135-148)
[2016-12-27 08:41] LABS: BUN (BLOOD UREA NITROGEN) 58 MG/DL (6-23); CREATININE 6.92 MG/DL (0.55-1.02); GFR AFRICAN AMERICAN 9 ML/MIN (>=60); GFR NON AFRICAN AMERICAN 7 ML/MIN (>=60); GLUCOSE, SERUM 132 MG/DL (60-99)
[2016-12-27 10:26] LABS: BASOPHILS 2.2 %; BASOPHILS ABSOLUTE 0.09 10/3/uL (0.0-0.16); EOSINOPHILS 14.2 %; EOSINOPHILS ABSOLUTE 0.58 10/3/uL (0.0-0.53); HEMATOCRIT 28.6 % (36.0-48.0); HEMOGLOBIN 9.5 g/dL (12.0-16.0); LYMPHOCYTES 30.1 %; LYMPHOCYTES ABSOLUTE 1.23 10/3/uL (0.67-4.30); MEAN CORPUS HGB CONC 33.2 g/dL (32.0-36.0); MEAN CORPUSCULAR VOLUME 87.2 fL (80-100); MEAN PLATELET VOLUME 9.4 fL (9.2-13.0); MONOCYTES ABSOLUTE 0.45 10/3/uL (0.21-1.20); NEUTROPHILS 42.5 %; NEUTROPHILS ABSOLUTE 1.73 10/3/uL (2.02-8.40); PLATELET COUNT 184 10/3/uL (150-400); RBC DISTRIBUTION WIDTH 14.3 % (12.0-16.0); RED CELL COUNT 3.28 10/6/uL (4.0-5.6); WHITE BLOOD CELLS 4.1 10/3/uL (4.5-10.5)
[2016-12-27 10:27] LABS: MANUAL DIFF NO %
[2016-12-27] MEDS ORDERED: DSS PO (13:50)
[2016-12-27] MEDS ORDERED: CARDU4 PO (13:50)
[2016-12-27] MEDS ORDERED: REG PO (13:51)
[2016-12-27] MEDS ORDERED: FOLIC PO (13:51)
[2016-12-27] MEDS ORDERED: SEROQUEL50 MG PO (13:52)
[2016-12-27] MEDS ORDERED: MULTIVITAMI1 PO (13:52)
[2016-12-27] MEDS ORDERED: SUCR PO (13:53)
[2016-12-27] MEDS ORDERED: LEVEMIR SC (13:54)
[2017-03-02] MEDS ORDERED: NOVOLOG SC (11:48)
[2017-03-02] MEDS ORDERED: BIST PO (11:48)
[2017-03-02] MEDS ORDERED: MULTIVITAMI1 PO (11:53)
[2017-03-02] MEDS ORDERED: MIRALAX POWDER1 PKT PO (11:54)
[2017-03-02] MEDS ORDERED: CARDCD120 PO (11:55)
[2017-03-02] MEDS ORDERED: NXL9 PO (11:58)
[2017-03-02] MEDS ORDERED: REG5 PO (11:59)
== END 2016-12-27 15:19 | disposition home or self-care (01) | DRG 682 ==
LOC: ER 23:02 → MIC 11-10 01:25 → 1SO 11-12 12:40 → 2SO 11-14 22:52
PROVIDERS: Emergency Medicine; Internal Medicine Nephrology; Nurse Practitioner; Registered Nurse
PROC: 5A1D60Z (ICD-10-PCS; principal; 2016-11-10)
PROC: 02HV33Z Insertion of Infusion Device into Superior Vena Cava, Percutaneous Approach (ICD-10-PCS; 2016-11-10)
PROC: 4A02X4A Measurement of Cardiac Electrical Activity, Guidance, External Approach (ICD-10-PCS; 2016-11-10)
DX: I12.0 Hypertensive chronic kidney disease with stage 5 chronic kidney disease or end stage renal disease (principal); N18.6 End stage renal disease; E10.22 Type 1 diabetes mellitus with diabetic chronic kidney disease; K31.84 Gastroparesis; E10.43 Type 1 diabetes mellitus with diabetic autonomic (poly)neuropathy; K75.89 Other specified inflammatory liver diseases; I51.3 Intracardiac thrombosis, not elsewhere classified; G45.8 Other transient cerebral ischemic attacks and related syndromes; I16.0 Hypertensive urgency; F31.9 Bipolar disorder, unspecified; E03.9 Hypothyroidism, unspecified; E87.5 Hyperkalemia; Z59.0 Homelessness; Z99.2 Dependence on renal dialysis; Z88.0 Allergy status to penicillin; Z79.899 Other long term (current) drug therapy; Z79.4 Long term (current) use of insulin; Z86.73 Personal history of transient ischemic attack (TIA), and cerebral infarction without residual deficits; Z91.11 Patient's noncompliance with dietary regimen; Z91.14 Patient's other noncompliance with medication regimen; Z91.15 Patient's noncompliance with renal dialysis
CPT/HCPCS: 36569; 36593; 71010; 80053; 80069; 82150; 82947; 82962; 83036; 83690; 83735; 84132; 84702; 85025; 87493; 87493-59; 87641; 93308; 96372; 96374; 99291; A9270-GY; C1751; C9113; G0257; J0360; J1170; J2405; J2550; J2765; J2997; P9047

== ENCOUNTER 2017-01-13 13:37 | Observation (INO) | payer OTHER ==
--- NOTE | ~2017-01-13 | HP ---
History And Physical [facility] [address] [facility] [place]. [address] NAME: EDDIE ESCOBAR : 89 STATUS : ADM Ling PAT#: [id number] AGE: 26 ADM/REG DATE : 01/13/17 MR#: [id number] REPORT SERV DATE: 01/14/17 DICTATED BY: OLEG PERSON DATE: 01/14/17 REPORT STATUS : Draft TRANSCRIBED BY: MODL DATE: 01/14/17 DATE OF ADMISSION: 01/13/2017 REASON FOR ADMISSION: Hypertensive crisis and end-stage renal disease with complaint of ongoing nausea and vomiting. HISTORY OF PRESENT ILLNESS: This is a 26-year-old female patient, who dialyzes on a Friday, Friday, and Friday schedule via a right subclavian access. She was frequently evaluated at [facility] and was recently dismissed home with family after a prolonged stay here at [facility]. She has known difficulties with noncompliance secondary to her bipolar and depression issues and is frequently evaluated here at [facility] and requires admission for supportive care. She reports overnight to [facility] with complaint of nausea and vomiting as well as diarrhea with associated hypertensive crisis. She has missed her usual hemodialysis treatment on Friday of this week and is admitted on observational status at this point for dialysis and supportive care. PAST MEDICAL HISTORY: Positive for end-stage renal disease, bipolar disorder, hypertension, anemia, diabetes mellitus type 1, medical noncompliance, depression, inability of self-care with self-care deficit, obesity, distant history of atrial thrombus with a non-candidacy for Coumadin due to medical noncompliance, esophagitis, history of remote cerebrovascular accident, hypothyroidism, history of cholestatic hepatitis. SOCIAL HISTORY: No EtOH. No illicit drugs. No tobacco. Currently, she lives here locally and states that she is living with her sister. Has had difficulty in the past with homelessness due to family issues. MEDICATIONS: Current medications are reviewed and placed on her active chart. ALLERGIES: SHE LISTS HER ALLERGIES PENICILLIN, MINOXIDIL, PHOSLO, AMOXICILLIN, AND DILAUDID. PHYSICAL EXAMINATION: VITAL SIGNS: Blood pressure at 215/107, temperature at 98.2, pulse at 111, respirations at 18. GENERAL: She is a chronically ill-appearing female patient, lying in bed during evaluation and dialysis. HEENT: Normocephalic and atraumatic. Normal ocular movements. No scleral icterus. No conjunctival pallor is appreciated. NECK: Supple. No thyromegaly. No JVD or mass. CHEST: Shows positive S1 and S2. No rubs or gallops. LUNGS: Diminished, but clear to auscultation throughout. Normal expansion and effort bilaterally. GI: Shows positive bowel sounds in all four quadrants. No appreciable mass. She is somewhat mildly tender and associated with chronic emesis over the last 24 hours. : Deferred. NEUROLOGIC: She appears to be grossly intact. Nonfocal. History And Physical [address] [address] NAME: EDDIE ESCOBAR : 89 STATUS : ADM Ling PAT#: [id number] AGE: 26 ADM/REG DATE : 01/13/17 MR#: [id number] REPORT SERV DATE: 01/14/17 DICTATED BY: OLEG PERSON DATE: 01/14/17 REPORT STATUS : Draft TRANSCRIBED BY: ZACARIAS DATE: 01/14/17 SKIN: Warm, dry, and intact to visualized surfaces. No rash, lesions, or ecchymosis. There is a right subclavian access in place with appropriate dressing and no evidence of drainage or ecchymosis. PSYCHIATRIC: She is of appropriate mood and affect and is awake and alert. LABORATORY DATA: Pertinent laboratories and imaging to this evaluation: Most recent CBC shows white blood cell count of 9.9, RBC 3.67, hemoglobin 10.8, hematocrit 32.6, platelets 203. Comprehensive metabolic panel shows sodium 134, potassium 3.9, BUN 57, creatinine 10.4, reflected GFR at 5 mL/minute, glucose of 261, calcium 9.3, total protein 8.2, albumin 4.5, globulin 3.7, alkaline phosphatase 267, total bilirubin at 1.3, ALT and AST at 16 and 19 respectively, lipase 222. IMPRESSION AND PLAN: End-stage renal disease patient with ongoing difficulties with noncompliance, reporting now with nausea and vomiting with known history of likely gastroparesis associated with diabetes mellitus type 1 with chronic medical noncompliance, hypertensive crisis, nausea and vomiting, and self-care deficit. She appears to be relatively volume stable. We will dialyze her today for two hours to get her back on schedule with her treatment. Attempt to control her blood pressures with IV antihypertensive medications along with her home medications. Control her nausea with antiemetics. As she stabilizes today, we will discharge her in an attempt to return her to her home dialysis clinic tomorrow for treatment. At this point, she will be in observation admission status and we are hopeful of discharge this afternoon. DICTATED BY: Toño Gold NP JR/ZACARIAS Oleg Person M.D. / [id number] CC: MD PAVITHRA Hahn LINDA S
[~2017-01-13 13:37] MED LIST changes: +FOLIC PO; +LEVEMFLXPN SC; +MULTIVITAMI1 PO; +SUCR PO
[2017-01-13 19:39] LABS: BASOPHILS 0.9 %; BASOPHILS ABSOLUTE 0.06 10/3/uL (0.0-0.16); EOSINOPHILS 4.5 %; EOSINOPHILS ABSOLUTE 0.31 10/3/uL (0.0-0.53); HEMOGLOBIN 11.3 g/dL (12.0-16.0); IMMATURE GRANULOCYTES 0.3 %; IMMATURE GRANULOCYTES ABSOLUTE 0.02 10/3/uL (0.0-0.11); LYMPHOCYTES 10.3 %; LYMPHOCYTES ABSOLUTE 0.71 10/3/uL (0.67-4.30); MEAN CORPUS HGB CONC 33.7 g/dL (32.0-36.0); MEAN CORPUSCULAR VOLUME 88.9 fL (80-100); MEAN PLATELET VOLUME 10.1 fL (9.2-13.0); MONOCYTES ABSOLUTE 0.55 10/3/uL (0.21-1.20); NEUTROPHILS ABSOLUTE 5.22 10/3/uL (2.02-8.40); PLATELET COUNT 208 10/3/uL (150-400); RED CELL COUNT 3.77 10/6/uL (4.0-5.6)
[2017-01-13 19:46] LABS: ER CBC TAT 0 Hrs 15 Mins; HEMATOCRIT 33.5 % (36.0-48.0); MANUAL DIFF NO %; RBC DISTRIBUTION WIDTH 18.4 % (12.0-16.0); WHITE BLOOD CELLS 6.9 10/3/uL (4.5-10.5)
[2017-01-13 19:53] LABS: ALBUMIN 4.5 G/DL (3.5-5.0); BUN (BLOOD UREA NITROGEN) 57 MG/DL (6-23); CALCIUM, SERUM 9.3 MG/DL (8.5-10.4); CHLORIDE, SERUM 97 MMOL/L (96-112); CO2 (CARBON DIOXIDE) 24 MMOL/L (24-34); SGOT(AST) 19 U/L (5-40); SGPT(ALT) 16 U/L (5-65); SODIUM, SERUM 134 MMOL/L (135-148); TOTAL BILIRUBIN 1.3 MG/DL (0-1.2); TOTAL PROTEIN 8.2 G/DL (6.0-8.5)
[2017-01-13 19:54] LABS: A/G RATIO 1.2 (0.7-1.9); ALKALINE PHOSPHATASE 261 U/L (45-117); GFR AFRICAN AMERICAN 5 ML/MIN (>=60); GFR NON AFRICAN AMERICAN 5 ML/MIN (>=60); GLOBULIN 3.7 G/DL (2.5-4.1); GLUCOSE, SERUM 261 MG/DL (60-99); POTASSIUM, SERUM 3.9 MMOL/L (3.5-5.3)
[2017-01-13] MEDS ORDERED: HUMALOG SC ×2 (21:18→21:21)
[2017-01-13] MEDS ORDERED: PR12.5 PO (21:25)
[2017-01-13] MEDS ORDERED: PROTONIX PO (21:26)
[2017-01-13] MEDS ORDERED: HYDRALAZINE100 MG PO (21:29)
[2017-01-13] MEDS ORDERED: FOLIC PO (21:30)
[2017-01-13] MEDS ORDERED: REG PO (21:31)
[2017-01-13] MEDS ORDERED: ADALAT CC90 MG PO (21:32)
[2017-01-13] MEDS ORDERED: *UNABLE3 (21:34)
[2017-01-14 10:12] LABS: BASOPHILS 0.3 %; BASOPHILS ABSOLUTE 0.03 10/3/uL (0.0-0.16); EOSINOPHILS 0.6 %; EOSINOPHILS ABSOLUTE 0.06 10/3/uL (0.0-0.53); HEMATOCRIT 32.6 % (36.0-48.0); HEMOGLOBIN 10.8 g/dL (12.0-16.0); IMMATURE GRANULOCYTES 0.2 %; IMMATURE GRANULOCYTES ABSOLUTE 0.02 10/3/uL (0.0-0.11); LYMPHOCYTES 5.4 %; LYMPHOCYTES ABSOLUTE 0.54 10/3/uL (0.67-4.30); MANUAL DIFF NO %; MEAN CORPUS HGB CONC 33.1 g/dL (32.0-36.0); MEAN CORPUSCULAR VOLUME 90.6 fL (80-100); MEAN PLATELET VOLUME 10.9 fL (9.2-13.0); MONOCYTES 10.6 %; MONOCYTES ABSOLUTE 1.05 10/3/uL (0.21-1.20); NEUTROPHILS 82.9 %; NEUTROPHILS ABSOLUTE 8.24 10/3/uL (2.02-8.40); PLATELET COUNT 203 10/3/uL (150-400); RBC DISTRIBUTION WIDTH 18.9 % (12.0-16.0); WHITE BLOOD CELLS 9.9 10/3/uL (4.5-10.5)
[2017-01-14 10:30] LABS: ALBUMIN 4.3 G/DL (3.5-5.0); CALCIUM, SERUM 8.6 MG/DL (8.5-10.4); CHLORIDE, SERUM 93 MMOL/L (96-112); CO2 (CARBON DIOXIDE) 24 MMOL/L (24-34); POTASSIUM, SERUM 4.2 MMOL/L (3.5-5.3); SODIUM, SERUM 134 MMOL/L (135-148)
[2017-01-14 10:31] LABS: BUN (BLOOD UREA NITROGEN) 63 MG/DL (6-23); GFR AFRICAN AMERICAN 5 ML/MIN (>=60); GFR NON AFRICAN AMERICAN 4 ML/MIN (>=60); GLUCOSE, SERUM 414 MG/DL (60-99); PHOSPHORUS, SERUM 6.9 MG/DL (2.5-4.5)
[2017-03-02] MEDS ORDERED: NOVOLOG SC (11:48)
[2017-03-02] MEDS ORDERED: BIST PO (11:48)
[2017-03-02] MEDS ORDERED: MULTIVITAMI1 PO (11:53)
[2017-03-02] MEDS ORDERED: MIRALAX POWDER1 PKT PO (11:54)
[2017-03-02] MEDS ORDERED: CARDCD120 PO (11:55)
[2017-03-02] MEDS ORDERED: NXL9 PO (11:58)
[2017-03-02] MEDS ORDERED: REG5 PO (11:59)
== END 2017-01-14 19:55 | disposition home or self-care (01) ==
LOC: ER 13:37 → 5SO 20:56
PROVIDERS: Emergency Medicine; Internal Medicine Nephrology
DX: I12.0 Hypertensive chronic kidney disease with stage 5 chronic kidney disease or end stage renal disease (principal); E10.22 Type 1 diabetes mellitus with diabetic chronic kidney disease; N18.6 End stage renal disease; I16.9 Hypertensive crisis, unspecified; Z99.2 Dependence on renal dialysis; F31.9 Bipolar disorder, unspecified; E11.22 Type 2 diabetes mellitus with diabetic chronic kidney disease; D63.1 Anemia in chronic kidney disease; E03.9 Hypothyroidism, unspecified; F41.9 Anxiety disorder, unspecified; Z88.0 Allergy status to penicillin; Z88.8 Allergy status to other drugs, medicaments and biological substances; Z79.899 Other long term (current) drug therapy; Z77.22 Contact with and (suspected) exposure to environmental tobacco smoke (acute) (chronic)
CPT/HCPCS: 71010; 80053; 80069; 82962; 83690; 85025; 93005; 96374; 96375; 96376; 99285; A9270-GY; C9113; G0257; G0378; J0360; J1885; J2405; J2550

== ENCOUNTER 2017-01-15 00:12 | Emergency (ER) | payer OTHER ==
[~2017-01-15 00:12] MED LIST changes: +*UNABLE3; +ADALAT CC90 MG PO; +PR12.5 PO
[2017-01-15 03:20] LABS: BASOPHILS 0.6 %; BASOPHILS ABSOLUTE 0.05 10/3/uL (0.0-0.16); EOSINOPHILS 2.3 %; EOSINOPHILS ABSOLUTE 0.19 10/3/uL (0.0-0.53); HEMATOCRIT 36.2 % (36.0-48.0); IMMATURE GRANULOCYTES 0.1 %; IMMATURE GRANULOCYTES ABSOLUTE 0.01 10/3/uL (0.0-0.11); LYMPHOCYTES 12.3 %; LYMPHOCYTES ABSOLUTE 1.03 10/3/uL (0.67-4.30); MANUAL DIFF NO %; MEAN CORPUS HGB CONC 33.1 g/dL (32.0-36.0); MEAN CORPUSCULAR HEMOGLOB 30.4 pg (26.0-34.0); MEAN CORPUSCULAR VOLUME 91.6 fL (80-100); MEAN PLATELET VOLUME 9.7 fL (9.2-13.0); MONOCYTES 11.5 %; MONOCYTES ABSOLUTE 0.96 10/3/uL (0.21-1.20); NEUTROPHILS 73.2 %; NEUTROPHILS ABSOLUTE 6.14 10/3/uL (2.02-8.40); PLATELET COUNT 218 10/3/uL (150-400); RBC DISTRIBUTION WIDTH 19.3 % (12.0-16.0); RED CELL COUNT 3.95 10/6/uL (4.0-5.6); WHITE BLOOD CELLS 8.4 10/3/uL (4.5-10.5)
[2017-01-15 03:35] LABS: CALCIUM, SERUM 9.4 MG/DL (8.5-10.4); CHLORIDE, SERUM 95 MMOL/L (96-112); CO2 (CARBON DIOXIDE) 25 MMOL/L (24-34); POTASSIUM, SERUM 4.2 MMOL/L (3.5-5.3); SODIUM, SERUM 138 MMOL/L (135-148)
[2017-01-15 03:38] LABS: BUN (BLOOD UREA NITROGEN) 41 MG/DL (6-23); CREATININE 9.23 MG/DL (0.55-1.02); GFR AFRICAN AMERICAN 6 ML/MIN (>=60); GFR NON AFRICAN AMERICAN 5 ML/MIN (>=60); GLUCOSE, SERUM 244 MG/DL (60-99)
[2017-03-02] MEDS ORDERED: BIST PO (11:48)
[2017-03-02] MEDS ORDERED: NOVOLOG SC (11:48)
[2017-03-02] MEDS ORDERED: MULTIVITAMI1 PO (11:53)
[2017-03-02] MEDS ORDERED: MIRALAX POWDER1 PKT PO (11:54)
[2017-03-02] MEDS ORDERED: CARDCD120 PO (11:55)
[2017-03-02] MEDS ORDERED: NXL9 PO (11:58)
[2017-03-02] MEDS ORDERED: REG5 PO (11:59)
== END 2017-01-15 07:38 | disposition home or self-care (01) ==
LOC: ER 00:12
PROVIDERS: Nurse Practitioner Acute Care
DX: R11.2 Nausea with vomiting, unspecified (principal); R19.7 Diarrhea, unspecified; R53.1 Weakness; I10 Essential (primary) hypertension; F31.9 Bipolar disorder, unspecified; E11.9 Type 2 diabetes mellitus without complications; D64.9 Anemia, unspecified; Z86.19 Personal history of other infectious and parasitic diseases; Z86.73 Personal history of transient ischemic attack (TIA), and cerebral infarction without residual deficits; Z88.0 Allergy status to penicillin; Z88.1 Allergy status to other antibiotic agents; Z88.8 Allergy status to other drugs, medicaments and biological substances; Z79.4 Long term (current) use of insulin; Z79.899 Other long term (current) drug therapy
CPT/HCPCS: 74020; 80048; 82962; 85025; 96372; 96374; 96375; 99284; A9270-GY; J0360; J2405; J2550

== ENCOUNTER 2017-02-09 18:37 | Emergency (ER) | payer OTHER ==
[2017-02-09 19:35] LABS: BASOPHILS 1.4 %; EOSINOPHILS 13.4 %; EOSINOPHILS ABSOLUTE 0.94 10/3/uL (0.0-0.53); HEMATOCRIT 36.2 % (36.0-48.0); HEMOGLOBIN 11.5 g/dL (12.0-16.0); IMMATURE GRANULOCYTES 0.3 %; IMMATURE GRANULOCYTES ABSOLUTE 0.02 10/3/uL (0.0-0.11); LYMPHOCYTES 16.9 %; LYMPHOCYTES ABSOLUTE 1.18 10/3/uL (0.67-4.30); MEAN CORPUS HGB CONC 31.8 g/dL (32.0-36.0); MEAN CORPUSCULAR HEMOGLOB 29.4 pg (26.0-34.0); MEAN CORPUSCULAR VOLUME 92.6 fL (80-100); MEAN PLATELET VOLUME 10.7 fL (9.2-13.0); MONOCYTES 10.3 %; MONOCYTES ABSOLUTE 0.72 10/3/uL (0.21-1.20); NEUTROPHILS 57.7 %; NEUTROPHILS ABSOLUTE 4.03 10/3/uL (2.02-8.40); RBC DISTRIBUTION WIDTH 16.3 % (12.0-16.0); RED CELL COUNT 3.91 10/6/uL (4.0-5.6)
[2017-02-09 19:42] LABS: ER CBC TAT 0 Hrs 07 MinsNP; MANUAL DIFF NO %; PLATELET COUNT 320 10/3/uL (150-400)
[2017-02-09 19:49] LABS: ALKALINE PHOSPHATASE 251 U/L (45-117); BUN (BLOOD UREA NITROGEN) 40 MG/DL (6-23); CALCIUM, SERUM 9.4 MG/DL (8.5-10.4); CHLORIDE, SERUM 102 MMOL/L (96-112); CO2 (CARBON DIOXIDE) 24 MMOL/L (24-34); CREATININE 8.24 MG/DL (0.55-1.02); GFR AFRICAN AMERICAN 7 ML/MIN (>=60); GFR NON AFRICAN AMERICAN 6 ML/MIN (>=60); GLUCOSE, SERUM 89 MG/DL (60-99); POTASSIUM, SERUM 5.3 MMOL/L (3.5-5.3); SGOT(AST) 12 U/L (5-40); SGPT(ALT) 15 U/L (5-65); SODIUM, SERUM 137 MMOL/L (135-148); TOTAL BILIRUBIN 0.9 MG/DL (0-1.2)
[2017-03-02] MEDS ORDERED: NOVOLOG SC (11:48)
[2017-03-02] MEDS ORDERED: BIST PO (11:48)
[2017-03-02] MEDS ORDERED: MULTIVITAMI1 PO (11:53)
[2017-03-02] MEDS ORDERED: MIRALAX POWDER1 PKT PO (11:54)
[2017-03-02] MEDS ORDERED: CARDCD120 PO (11:55)
[2017-03-02] MEDS ORDERED: NXL9 PO (11:58)
[2017-03-02] MEDS ORDERED: REG5 PO (11:59)
== END 2017-02-10 00:13 | disposition home or self-care (01) ==
LOC: ER 18:37
PROVIDERS: Emergency Medicine
DX: E10.43 Type 1 diabetes mellitus with diabetic autonomic (poly)neuropathy (principal); K31.84 Gastroparesis; I12.9 Hypertensive chronic kidney disease with stage 1 through stage 4 chronic kidney disease, or unspecified chronic kidney disease; N18.9 Chronic kidney disease, unspecified; E86.0 Dehydration; Z99.2 Dependence on renal dialysis; F31.9 Bipolar disorder, unspecified; D64.9 Anemia, unspecified; Z88.0 Allergy status to penicillin; Z88.1 Allergy status to other antibiotic agents; Z88.8 Allergy status to other drugs, medicaments and biological substances; Z79.4 Long term (current) use of insulin; Z79.899 Other long term (current) drug therapy
CPT/HCPCS: 80053; 81001; 83690; 84703; 85025; 96374; 96375; 96376; 99284; A9270-GY; J1170; J2550

== ENCOUNTER 2017-02-14 08:06 | Inpatient (IN) | payer OTHER ==
--- NOTE | ~2017-02-14 | CN ---
Consultation Report [facility] [address] [place]. [address] NAME: EDDIE MASON : 89 STATUS : ADM IN PAT#: [id number] AGE: 26 ADM/REG DATE : 02/14/17 MR#: [id number] REPORT SERV DATE: 02/15/17 DICTATED BY: SUSU JO DATE: 02/15/17 REPORT STATUS : Draft TRANSCRIBED BY: MODL DATE: 02/15/17 CONSULTATION DATE OF CONSULTATION: 02/15/2017 ECONOMIC DEVELOPMENT SPECIALIST: Dr. Benoit Stallworth. REASON FOR CONSULTATION: Nausea, vomiting, and ileus or possible ileus, seen on a noncontrast CT abdomen and pelvis. CT showing scattered small bowel air-fluid levels with very minimal distention most likely an ileus, followup films recommended if needed. Gallbladder is contracted and ultrasound has been done, report pending. CT also showed mild splenomegaly and appearance of coils within the hepatic vasculature. HISTORY OF PRESENT ILLNESS: Ms. Mason is a 26-year-old, unfortunate lady with severe medical issues and also history of significant medical noncompliance. This is being judged from the notes in the chart as I have never seen this patient before. She comes in with nausea, vomiting, and abdominal pain. She has had fragmented medical care partially secondary to her noncompliance. She visits [facility] as well as [facility]. She has end-stage renal disease, on dialysis, who is noncompliant with her dialysis also. She was apparently at [facility] and may have left the facility without informing anybody as it appears from the notes. She comes in now with nausea and vomiting going on for about 48 hours. Evaluation here revealed some air-fluid levels in the small bowel as mentioned. An x-ray of the chest shows borderline enlarged cardiac silhouette with shallow inspiration. Her lactate on admission was 1.2 and chemistry panel reveals a BUN of 34 with a creatinine of 8.5. Her glucose this morning is 108, but yesterday it was 372. Rest of the labs appeared pretty stable and white count is 5.8, hemoglobin, hematocrit 10.8 and 34.1. In the nausea and vomiting, she denies any hematemesis. Presently, she has not had a bowel movement in one day, but she says usually her bowel habits are on the looser side. During an admission in 05/2016 for melena, she underwent a colonoscopy, which showed stool in the entire colon with no active bleeding, but exam was significantly limited by the poor prep. She also had an EGD on 05/16/2016 with no gross lesions in the esophagus, large amounts of food was found in the entire examined stomach and the duodenum. The following day, on 05/17/2016, she had an EUS for abnormal liver function tests showing no significant pathology in the bile duct with no suggestion of obstruction. There was no significant pathology in the pancreatic head or the pancreas. MEDICAL HISTORY: Includes: 1. End-stage renal disease, on hemodialysis with chronic medical noncompliance. Consultation Report [place] [id number] [facility] [place]. [address] NAME: EDDIE MASON : 89 STATUS : ADM IN [facility]#: [id number] AGE: 26 ADM/REG DATE : 02/14/17 MR#: [id number] REPORT SERV DATE: 02/15/17 DICTATED BY: SUSU JO DATE: 02/15/17 REPORT STATUS : Draft TRANSCRIBED BY: ZACARIAS DATE: 02/15/17 2. Bipolar disorder and depression. 3. Diabetes type 1. 4. Hypertension. 5. History of an atrial thrombus with patient not a candidate for Coumadin because of medical noncompliance. 6. CVA in the past. 7. Chronic hepatitis. 8. Hypothyroidism. HABITS: Does not smoke or drink. FAMILY HISTORY: Noncontributory. REVIEW OF SYSTEMS: GENERAL: She describes the general health to be very poor. There is occasional fever and chills. There are weakness and dizziness. No itching, night sweats, or night fevers. HEENT: Vision diminished and hearing normal. SKIN: Normal. GI: As mentioned above. GENITOURINARY: End-stage renal disease, on dialysis. CARDIOVASCULAR: As mentioned above with history of atrial thrombus. NEUROLOGICAL: History of CVA in the past. MUSCULOSKELETAL: Normal or negative. ENDOCRINE: Diabetes. PULMONARY: Occasional shortness of breath. No cough. HOME MEDICATIONS: Home medications include folic acid, hydralazine, insulin, nifedipine ER, pantoprazole, promethazine. ALLERGIES: TO PENICILLIN, MINOXIDIL. PAST SURGERIES: Include placement of several dialysis ports. PHYSICAL EXAMINATION: GENERAL: She is an alert, oriented lady, who seems to be in pretty ill health. NECK: Supple without lymphadenopathy, thyromegaly, or carotid bruits. HEENT: Normal. VITAL SIGNS: Stable except for high blood pressure. LUNGS: Reveal good air entry. No rales or rhonchi. CVS: Reveals some sinus tachycardia. ABDOMEN: Soft and nondistended. Bowel sounds are slightly hypoactive. There is no tenderness, guarding, rigidity, or rebound. Liver and spleen, not palpable. Clinically, no ascites. EXTREMITIES: Without any edema. Consultation Report [facility] [address] [facility] [place]. [address] NAME: EDDIE MASON : 89 STATUS : ADM IN PAT#: [id number] AGE: 26 ADM/REG DATE : 02/14/17 MR#: [id number] REPORT SERV DATE: 02/15/17 DICTATED BY: SUSU JO DATE: 02/15/17 REPORT STATUS : Draft TRANSCRIBED BY: ZACARIAS DATE: 02/15/[address] scan are as mentioned. Ultrasound report is pending. IMPRESSION: What appears to be a case of chronic nausea and vomiting in this lady with end- stage renal disease, and hypertension which has not been controlled, also history of what appears to be severe diabetic gastroparesis as indicated by the persistence of food in the stomach on past endoscopic examination. Ileus is probably incidental probably from her generalized hypomotility. There is no diarrhea, so I doubt there is gastroenteritis. Strongly dispute possibility of bowel obstruction. Multiple other problems as mentioned. RECOMMENDATIONS: 1. We will use some Dulcolax suppository to see if this will help her going. 2. We will start on clear liquid diet. 3. We will follow x-rays of the abdomen. 4. Wanted to start her on Reglan, but she stays it gives her the opposite effect, it makes her more nauseated and makes her vomit. At this point, no plans for any endoscopy and we will follow. SILVIA/ZACARIAS Cipriano Jo M.D. / [id number] CC: Bull Barber M.D.
--- NOTE | ~2017-02-14 | HP ---
History And Physical [place] [id number] [facility] [place]. [address] NAME: EDDIE ESCOBAR : 90 STATUS : ADM IN PAT#: [id number] AGE: 26 ADM/REG DATE : 02/14/17 MR#: [id number] REPORT SERV DATE: 02/14/17 DICTATED BY: DATE: REPORT STATUS : Draft TRANSCRIBED BY: MODL DATE: 02/14/17 DATE OF ADMISSION: 02/14/2017 REASON FOR ADMISSION: End-stage renal disease with nausea, vomiting, and fever. HISTORY OF PRESENT ILLNESS: This is a 26-year-old female patient, well known to our service with frequent recurrent admissions. Her history is complex and positive for end-stage renal disease with chronic medical noncompliance due to ongoing self-care issues related to her bipolar disorder. She has frequently required inpatient hospital care and has been noncompliant regarding home care issues as well as interhospital issues. She was recently at [facility] with an admission for hypertension and nausea and vomiting on 01/27/2017, and required a new PermCath on 01/30/2017, due to poor blood flow. On 02/02/2017, the patient left the facility with no contact to either the staff on the floor or the providers in the facility. She apparently made an appearance at dialysis on 02/03/2017, and 02/05/2017, as is our noted charges from [address] where she is to regularly dialyze. She reports to [facility] this afternoon with a complaint of ongoing nausea and vomiting that she reports has been for approximately 48 hours. She has also had fevers on evaluation here but no report of fevers at home. She appears to be volume stable on assessment this afternoon and has had some level of difficulty with nausea and vomiting. It is not clear that if she has maintained her medication compliance at home nor is it clear that she has maintained regular Accu-Cheks of her blood sugars and she is known to be a type 1 diabetic. She is awake and alert. Appears rather ill lying in bed during evaluation this afternoon. She is without acute distress. PAST MEDICAL HISTORY: Positive for end-stage renal disease, Friday, Friday, and Friday via a subclavian access with chronic medical noncompliance, bipolar disorder, depression, diabetes mellitus type 1, home self-care deficit. Obesity. Hypertension. Distant history of atrial thrombus with non-candidacy for Coumadin due to medical noncompliance and previous GI bleed. Esophagitis. Remote cerebrovascular accident. Hypothyroidism. History of cholestatic hepatitis. SOCIAL HISTORY: No ETOH. No illicit drugs. No tobacco. Unclear of her current living situation. She has had periodic homelessness and she has periodically lived in shelters. She has periodically lived with family members. ALLERGIES: SHE LISTS ALLERGIES TO PENICILLIN; AMOXICILLIN; MINOXIDIL; AND PHOSLO. REVIEW OF SYSTEMS: Completed. Please see HPI for pertinent details. FAMILY HISTORY: Noncontributory. Not reviewed during this consultation and dictation. ACTIVE MEDICATIONS: Include 1. Folic acid 1 mg p.o. daily. 2. Hydralazine 100 mg p.o. q.8 hours. 3. Humalog via sliding scale. History And Physical [address] [place]. [address] NAME: EDDIE ESCOBAR : 89 STATUS : ADM IN [facility]#: [id number] AGE: 26 ADM/REG DATE : 02/14/17 MR#: [id number] REPORT SERV DATE: 02/14/17 DICTATED BY: DATE: REPORT STATUS : Draft TRANSCRIBED BY: MODL DATE: 02/14/17 4. Nifedipine 90 mg p.o. daily. 5. Protonix 40 mg p.o. daily. 6. Phenergan 6.25 mg p.o. q.6 hours p.r.n. PHYSICAL EXAMINATION: VITAL SIGNS: Blood pressure 135/88, temperature at 99.4, 98% on 2 L nasal cannula, and heart rate at 91 beats per minute and regular. GENERAL: She is an acutely ill-appearing female patient, lying in bed during evaluation. HEENT: Normocephalic and atraumatic. Normal ocular movements. No scleral icterus. No conjunctival pallor is appreciated. NECK: Supple without thyromegaly. No JVD or mass. CHEST: Shows positive S1 and S2. No rubs or gallops. LUNGS: Diminished throughout. Normal expansion and effort bilaterally without rhonchi or wheezes, appreciated on auscultation. ABDOMEN: The abdomen is somewhat tender but no overt guarding or rebound tenderness is noted to examination. : Deferred. EXTREMITIES: Show positive pulses. No clubbing, cyanosis, or edema. NEUROLOGIC: Appears to be grossly intact. Nonfocal. SKIN: Warm, and dry and intact to visualized surfaces. No rash, lesion, or ecchymosis. PSYCHIATRIC: She is of appropriate mood and affect and appears to be grossly nonfocal. LABORATORY DATA: Pertinent laboratories and imaging to this evaluation are as follows: Urinalysis is currently pending. She has a negative HCG. Most recent blood glucose at 343. B-natriuretic peptide 2231.6. Lactate 1.2 chest pain profile. Sodium 140, potassium 4.0, chloride 102, CO2 of 27, BUN 30, creatinine 7.17, reflected GFR 7 mL/minute, glucose of 372, calcium 9.3, magnesium 2.2, and lipase 156. Troponin 0.03. CT of the abdomen and pelvis identify scattered small bowel air-fluid levels with very minimal distention, most likely represents an ileus; contracted gallbladder with mild hyperdensity, either sludge or stones, mild splenomegaly, stable appearance of coils within the hepatic vasculature. The pancreas is poorly evaluated due to the current exams. Fat planes are obscured. Correlation with laboratory data is recommended. Portable chest x-ray shows clear lungs on evaluation with shallow inspiration. Most recent CBC shows a white blood cell count of 7.0, RBC 3.91, hemoglobin 11.5, hematocrit 36.2, and platelets at 320. IMPRESSION AND PLAN: End-stage renal disease, on dialysis Friday, Friday, and Friday [facility] 3[facility], complicated medical history as above in HPI, which is further complicated due to bipolar disorder and chronic depression with chronic intermittent homelessness and difficulty with home self-care. The patient has presented to [facility] with nausea, vomiting, and fever with an elevated blood glucose. There is a sludge/question of stones in her gallbladder on CT of the abdomen and pelvis, and her pancreas is poorly evaluated on the current exam. We will place her on an insulin drip, maintain her dialysis schedule, but move her to a Friday, , and Friday per her usual practice here while she is an inpatient. She is currently volume stable, and her potassium is non- elevated. Undertake an ultrasound of the gallbladder for further evaluation, evaluate her pancreas with amylase and lipase to further investigate this as needed. Consult GI for evaluation on rounds due to a small-bowel obstruction, and question of gallstones and consider Infectious Disease if blood culture should return positive and would evaluate for a History And Physical [address] [address] NAME: EDDIE ESCOBAR : 89 STATUS : ADM IN PAT#: [id number] AGE: 26 ADM/REG DATE : 02/14/17 MR#: [id number] REPORT SERV DATE: 02/14/17 DICTATED BY: DATE: REPORT STATUS : Draft TRANSCRIBED BY: MODL DATE: 02/14/17 surgical intervention if ultrasound of the gallbladder should prove further intervention is required. Antibiotics have been requested and our friends in pharmacy will be providing dosage in the form of vancomycin and Maxipime, keep her currently n.p.o. status. Place NG tube to low intermittent suction if needed for control of nausea and vomiting. Insulin via level 1 sliding scale, currently with insulin drip and control glucose and avoid DKA. Plan for dialysis tomorrow. Modify treatment plan based on the clinical presentation of the patient, laboratory results, and further consultation with renal attending. We appreciate the assistance of GI services as well as representatives from the pharmacy who are providing dosing for this patient's medication. SLOANE Toño Gold NP / [id number] CC: Alfredo Cole M.D.
--- NOTE | ~2017-02-14 | DS ---
Discharge Summary [facility] [address] [facility] [place]. [address] NAME: EDDIE ESCOBAR : 89 STATUS : DIS IN PAT#: [id number] AGE: 26 ADM/REG DATE : 02/14/17 MR#: [id number] REPORT SERV DATE: 03/05/17 DICTATED BY: JIMENEZ VALADEZ DATE: 03/04/17 REPORT STATUS : Draft TRANSCRIBED BY: ZACARIAS DATE: 03/04/17 Data Collection from hospitalization DISCHARGE DIAGNOSES: 1. Ileus with nausea and vomiting. 2. Diabetic gastroparesis - severe. 3. Type 1 diabetes mellitus. 4. End-stage renal disease. 5. Noncompliance. 6. Accelerated hypertension. 7. Bipolar disorder. 8. Depression. 9. Obesity. 10.History of gastrointestinal bleed. 11.History of remote cerebrovascular accident. 12.Hypothyroidism. 13.History of cholestatic hepatitis. CONSULTATIONS: Dr. Soy Jo. PROCEDURES PERFORMED: 1. CT scan of the abdomen and pelvis without contrast, 02/14/2017. 2. Gallbladder ultrasound, 02/14/2017. MEDICATIONS: Catapres-TTS 0.3 mg topically every seven days, folic acid 1 mg daily, hydralazine 100 mg every 8 hours, Levemir 10 units subcutaneously at bedtime, Humalog as instructed, Reglan 5 mg daily, Adalat CDC 90 mg daily, Protonix 40 mg twice a day, and Phenergan 6.25 mg every six hours as needed. CONDITION AT DISCHARGE: Stable. DISPOSITION: The patient was discharged home on a renal diet with activities as instructed. She would follow up for dialysis Friday following discharge. HOSPITAL COURSE: This is a 26-year-old female, who is well known to our service with frequent recurrent admissions. Her history is complex and positive for end-stage renal disease with chronic medical noncompliance due to ongoing health care issues related to her bipolar disorder. She has frequently required inpatient hospital care and had been noncompliant regarding home care issues as well as interhospital issues. She was recently at [facility] with an admission for hypertension and nausea and vomiting on 01/27/2017. She required a new PermCath on 01/30/2017 due to poor blood flow. On 02/02/2017, she left the facility with no contact with either the staff on the floor or the providers in the facility. She apparently made an appearance at dialysis on 02/03/2017 and 02/05/2017. She reported to the [facility] on the afternoon of this admission with complaints of ongoing nausea and vomiting. She reports she has had this for 48 hours. She had also had fevers on evaluation, but there was no reported fever at home. She appeared to be volume stable on assessment that afternoon and had some level of difficulty with nausea and vomiting. It was not clear whether she had maintained her medication Discharge Summary [facility] [address] [place]. [address] NAME: EDDIE ESCOBAR : 89 STATUS : DIS IN PAT#: [id number] AGE: 26 ADM/REG DATE : 02/14/17 MR#: [id number] REPORT SERV DATE: 03/05/17 DICTATED BY: JIMENEZ VALADEZ DATE: 03/04/17 REPORT STATUS : Draft TRANSCRIBED BY: ZACARIAS DATE: 03/04/17 compliance at home nor was it clear if she had maintained regular Accu-Cheks of her blood sugars. She is a known type 1 diabetic. She appeared rather ill lying in bed during this evaluation. She was admitted at this time for further evaluation and treatment. Upon admission, CT scan of the abdomen and pelvis revealed scattered small bowel air-fluid levels with very minimal distention, most likely this represented ileus. There was contracted gallbladder with mild hyperdensity - either sludge or stones. There was mild splenomegaly. There was a stable appearance of coils with the hepatic vasculature. The pancreas was poorly evaluated on the current exam. Fat planes were obscured. She was placed on an insulin drip. We would maintain her dialysis schedule. Potassium was not elevated. Vancomycin and Maxipime were going to begin. An NG tube would be placed to low intermittent suction if needed for control of nausea and vomiting. Level 1 sliding scale insulin was started. She currently was on an insulin drip. Dialysis would be performed the following day. The following day, she was seen by Dr. Soy Jo. She had nausea and vomiting for about 48 hours. Evaluation here had revealed some air-fluid levels in the small bowel. Chest x-ray showed borderline enlarged cardiac silhouette with shallow inspiration. The patient has a history of what appears to be severe diabetic gastroparesis. This is indicated by the persistence of food in the stomach on past endoscopic examination. It was felt that this ileus was probably incidental, probably from her generalized hypomotility. There was no diarrhea, so he was doubtful that this was gastroenteritis. He strongly disputes the possibility of bowel obstruction. Dulcolax suppository was going to be given. She was going to be placed on a clear liquid diet. X-rays of the abdomen would be obtained. He wanted to start her on Reglan. The patient said it gave her the opposite effect and made her more nauseated and made her vomit. At this point in time, there were no plans for any endoscopy to be performed. On the , she had no current nausea or vomiting. She still had epigastric and left upper quadrant discomfort and distention. She was wanting to eat. KUB had shown decreased intestinal gas consistent with previous exam. Clear liquids were being given. Reglan was increased. Dulcolax suppository was given. On 02/17/2017, she had no nausea or vomiting. She was tolerating oral intake. She had no edema. Her diet was advanced. She continued to do well. Discharge planning was performed. On 02/19/2017, she had no new complaints. Hemodialysis therapy was performed. We encouraged compliance with blood pressure medications and insulin. Discharge instructions were given. Due to her improved and stable condition, she was discharged home with the above-stated instructions. Information collected by: Lisa Rene I submit the above information as my discharge summary. MELISSA/ZACARIAS Jimenez Valadez M.D. / [id number] CC: Discharge Summary [address] [address] NAME: EDDIE ESCOBAR : 89 STATUS : DIS IN PAT#: [id number] AGE: 26 ADM/REG DATE : 02/14/17 MR#: [id number] REPORT SERV DATE: 03/05/17 DICTATED BY: JIMENEZ VALADEZ DATE: 03/04/17 REPORT STATUS : Draft TRANSCRIBED BY: MODL DATE: 03/04/17 Alfredo Cole M.D. Cipriano Jo M.D.
[2017-02-14 08:54] LABS: BASOPHILS ABSOLUTE 0.12 10/3/uL (0.0-0.16); EOSINOPHILS 8.3 %; EOSINOPHILS ABSOLUTE 0.49 10/3/uL (0.0-0.53); HEMOGLOBIN 11.8 g/dL (12.0-16.0); IMMATURE GRANULOCYTES 0.3 %; IMMATURE GRANULOCYTES ABSOLUTE 0.02 10/3/uL (0.0-0.11); LYMPHOCYTES 20.9 %; LYMPHOCYTES ABSOLUTE 1.24 10/3/uL (0.67-4.30); MEAN CORPUS HGB CONC 31.9 g/dL (32.0-36.0); MEAN CORPUSCULAR HEMOGLOB 29.6 pg (26.0-34.0); MEAN CORPUSCULAR VOLUME 92.7 fL (80-100); MEAN PLATELET VOLUME 11.4 fL (9.2-13.0); MONOCYTES 15.7 %; MONOCYTES ABSOLUTE 0.93 10/3/uL (0.21-1.20); NEUTROPHILS 52.8 %; NEUTROPHILS ABSOLUTE 3.12 10/3/uL (2.02-8.40); PLATELET COUNT 256 10/3/uL (150-400); RBC DISTRIBUTION WIDTH 16.9 % (12.0-16.0); RED CELL COUNT 3.99 10/6/uL (4.0-5.6); WHITE BLOOD CELLS 5.9 10/3/uL (4.5-10.5)
[2017-02-14 09:03] LABS: INTERNATIONAL NORMAL RATI 1.2 UNITS (-); PARTIAL THROMBO TIME 30.8 SEC (22.5-37.2); PROTIME (NOT ORD) 15.2 SEC (12.0-14.5)
[2017-02-14 09:04] LABS: ER CBC TAT 0 Hrs 05 MinsNP; MANUAL DIFF NO %
[2017-02-14 09:11] LABS: CALCIUM, SERUM 9.3 MG/DL (8.5-10.4); CHLORIDE, SERUM 102 MMOL/L (96-112); CO2 (CARBON DIOXIDE) 27 MMOL/L (24-34); SODIUM, SERUM 140 MMOL/L (135-148)
[2017-02-14 09:25] LABS: BUN (BLOOD UREA NITROGEN) 30 MG/DL (6-23); CREATININE 7.17 MG/DL (0.55-1.02); GFR AFRICAN AMERICAN 8 ML/MIN (>=60); GFR NON AFRICAN AMERICAN 7 ML/MIN (>=60); GLUCOSE, SERUM 372 MG/DL (60-99); TROPONIN I 0.03 NG/ML (<0.05)
[2017-02-14 09:26] LABS: CHEST PAIN PROFILE TAT 0 Hrs 36 Mins
[2017-02-14] MEDS ORDERED: HYDRALAZINE100 MG PO (09:31)
[2017-02-14] MEDS ORDERED: FOLIC PO (09:31)
[2017-02-14] MEDS ORDERED: PROTONIX PO (09:31)
[2017-02-14] MEDS ORDERED: HUMALOG SC (09:32)
[2017-02-14] MEDS ORDERED: ADALAT CC90 MG PO (09:32)
[2017-02-14] MEDS ORDERED: PR12.5 PO (09:33)
[2017-02-14 13:44] LABS: ASCORBIC ACID (UR NOT ORDER) NEG (NEG); BILIRUBIN, URINE NEGATIVE (NEG); ER URINALYSIS TAT 0 Hrs 09 Mins; KETONE, URINE NEGATIVE (NEG); LEUKOCYTE ESTERASE(NOT OR NEG (NEG); NITRITE (URINE) NEG (NEG); WBC (NOT ORDERED) (RFLEX) 1 (0-5)
[2017-02-15 01:18] LABS: BASOPHILS 1.4 %; BASOPHILS ABSOLUTE 0.08 10/3/uL (0.0-0.16); EOSINOPHILS 5.4 %; EOSINOPHILS ABSOLUTE 0.31 10/3/uL (0.0-0.53); HEMATOCRIT 34.1 % (36.0-48.0); HEMOGLOBIN 10.8 g/dL (12.0-16.0); IMMATURE GRANULOCYTES 0.2 %; IMMATURE GRANULOCYTES ABSOLUTE 0.01 10/3/uL (0.0-0.11); LYMPHOCYTES 19.1 %; MANUAL DIFF NO %; MEAN CORPUS HGB CONC 31.7 g/dL (32.0-36.0); MEAN CORPUSCULAR HEMOGLOB 29.8 pg (26.0-34.0); MEAN CORPUSCULAR VOLUME 94.2 fL (80-100); MEAN PLATELET VOLUME 10.6 fL (9.2-13.0); MONOCYTES ABSOLUTE 0.69 10/3/uL (0.21-1.20); NEUTROPHILS 61.9 %; NEUTROPHILS ABSOLUTE 3.57 10/3/uL (2.02-8.40); PLATELET COUNT 239 10/3/uL (150-400); RBC DISTRIBUTION WIDTH 17.2 % (12.0-16.0); RED CELL COUNT 3.62 10/6/uL (4.0-5.6); WHITE BLOOD CELLS 5.8 10/3/uL (4.5-10.5)
[2017-02-15 01:36] LABS: ALBUMIN 3.6 G/DL (3.5-5.0); CALCIUM, SERUM 8.6 MG/DL (8.5-10.4); CHLORIDE, SERUM 101 MMOL/L (96-112); CO2 (CARBON DIOXIDE) 30 MMOL/L (24-34); POTASSIUM, SERUM 3.7 MMOL/L (3.5-5.3); SGOT(AST) 16 U/L (5-40); SGPT(ALT) 15 U/L (5-65); SODIUM, SERUM 142 MMOL/L (135-148); TOTAL BILIRUBIN 0.9 MG/DL (0-1.2); TOTAL PROTEIN 7.3 G/DL (6.0-8.5); TROPONIN I 0.04 NG/ML (<0.05)
[2017-02-15 01:37] LABS: ALKALINE PHOSPHATASE 208 U/L (45-117); BUN (BLOOD UREA NITROGEN) 34 MG/DL (6-23); CREATININE 8.51 MG/DL (0.55-1.02); DIRECT BILIRUBIN 0.3 MG/DL (0.0-0.4); GFR AFRICAN AMERICAN 7 ML/MIN (>=60); GFR NON AFRICAN AMERICAN 6 ML/MIN (>=60); GLUCOSE, SERUM 108 MG/DL (60-99); INDIRECT BILIRUBIN(NOT ORDER) 0.6 MG/DL (0.1-0.9); PHOSPHORUS, SERUM 4.9 MG/DL (2.5-4.5)
[2017-02-18 07:44] LABS: BASOPHILS 1.3 %; BASOPHILS ABSOLUTE 0.07 10/3/uL (0.0-0.16); EOSINOPHILS 17.9 %; EOSINOPHILS ABSOLUTE 0.98 10/3/uL (0.0-0.53); HEMATOCRIT 36.8 % (36.0-48.0); HEMOGLOBIN 11.9 g/dL (12.0-16.0); IMMATURE GRANULOCYTES 0.4 %; IMMATURE GRANULOCYTES ABSOLUTE 0.02 10/3/uL (0.0-0.11); LYMPHOCYTES 21.4 %; LYMPHOCYTES ABSOLUTE 1.17 10/3/uL (0.67-4.30); MEAN CORPUS HGB CONC 32.3 g/dL (32.0-36.0); MEAN CORPUSCULAR HEMOGLOB 30.2 pg (26.0-34.0); MEAN CORPUSCULAR VOLUME 93.4 fL (80-100); MEAN PLATELET VOLUME 10.9 fL (9.2-13.0); MONOCYTES 11.7 %; MONOCYTES ABSOLUTE 0.64 10/3/uL (0.21-1.20); NEUTROPHILS 47.3 %; PLATELET COUNT 274 10/3/uL (150-400); RBC DISTRIBUTION WIDTH 16.3 % (12.0-16.0); RED CELL COUNT 3.94 10/6/uL (4.0-5.6); WHITE BLOOD CELLS 5.5 10/3/uL (4.5-10.5)
[2017-02-18 07:45] LABS: MANUAL DIFF NO %
[2017-02-18 08:02] LABS: ALBUMIN 3.2 G/DL (3.5-5.0); CALCIUM, SERUM 8.3 MG/DL (8.5-10.4); CHLORIDE, SERUM 101 MMOL/L (96-112); PHOSPHORUS, SERUM 5.8 MG/DL (2.5-4.5)
[2017-02-18 08:03] LABS: BUN (BLOOD UREA NITROGEN) 43 MG/DL (6-23); CO2 (CARBON DIOXIDE) 24 MMOL/L (24-34); CREATININE 9.63 MG/DL (0.55-1.02); GFR AFRICAN AMERICAN 6 ML/MIN (>=60); GFR NON AFRICAN AMERICAN 5 ML/MIN (>=60); GLUCOSE, SERUM 193 MG/DL (60-99); POTASSIUM, SERUM 5.1 MMOL/L (3.5-5.3); SODIUM, SERUM 135 MMOL/L (135-148)
[2017-02-19 08:11] LABS: BASOPHILS 0.9 %; BASOPHILS ABSOLUTE 0.05 10/3/uL (0.0-0.16); EOSINOPHILS 16.3 %; EOSINOPHILS ABSOLUTE 0.94 10/3/uL (0.0-0.53); HEMATOCRIT 35.7 % (36.0-48.0); HEMOGLOBIN 11.6 g/dL (12.0-16.0); IMMATURE GRANULOCYTES 0.3 %; IMMATURE GRANULOCYTES ABSOLUTE 0.02 10/3/uL (0.0-0.11); LYMPHOCYTES 19.4 %; LYMPHOCYTES ABSOLUTE 1.12 10/3/uL (0.67-4.30); MEAN CORPUS HGB CONC 32.5 g/dL (32.0-36.0); MEAN CORPUSCULAR HEMOGLOB 29.9 pg (26.0-34.0); MEAN PLATELET VOLUME 11.3 fL (9.2-13.0); MONOCYTES ABSOLUTE 0.75 10/3/uL (0.21-1.20); NEUTROPHILS 50.1 %; PLATELET COUNT 276 10/3/uL (150-400); RBC DISTRIBUTION WIDTH 16.2 % (12.0-16.0); RED CELL COUNT 3.88 10/6/uL (4.0-5.6); WHITE BLOOD CELLS 5.8 10/3/uL (4.5-10.5)
[2017-02-19 08:12] LABS: MANUAL DIFF NO %
[2017-02-19 08:21] LABS: ALBUMIN 3.2 G/DL (3.5-5.0); CALCIUM, SERUM 8.7 MG/DL (8.5-10.4); CHLORIDE, SERUM 97 MMOL/L (96-112); CO2 (CARBON DIOXIDE) 24 MMOL/L (24-34); POTASSIUM, SERUM 4.7 MMOL/L (3.5-5.3); SODIUM, SERUM 131 MMOL/L (135-148)
[2017-02-19 08:23] LABS: BUN (BLOOD UREA NITROGEN) 35 MG/DL (6-23); CREATININE 6.87 MG/DL (0.55-1.02); GFR AFRICAN AMERICAN 9 ML/MIN (>=60); GFR NON AFRICAN AMERICAN 8 ML/MIN (>=60); GLUCOSE, SERUM 385 MG/DL (60-99); PHOSPHORUS, SERUM 4.2 MG/DL (2.5-4.5)
[2017-02-19] MEDS ORDERED: REG5 PO (10:04)
[2017-02-19] MEDS ORDERED: CATAPRES3 TOP (10:05)
[2017-02-19] MEDS ORDERED: LEVEMIR SC (10:08)
[2017-03-02] MEDS ORDERED: NOVOLOG SC (11:48)
[2017-03-02] MEDS ORDERED: BIST PO (11:48)
[2017-03-02] MEDS ORDERED: MULTIVITAMI1 PO (11:53)
[2017-03-02] MEDS ORDERED: MIRALAX POWDER1 PKT PO (11:54)
[2017-03-02] MEDS ORDERED: CARDCD120 PO (11:55)
[2017-03-02] MEDS ORDERED: NXL9 PO (11:58)
[2017-03-02] MEDS ORDERED: REG5 PO (11:59)
== END 2017-02-19 13:25 | disposition home or self-care (01) | DRG 388 ==
LOC: ER 08:06 → 2SO 10:39
PROVIDERS: Internal Medicine Nephrology; Nurse Practitioner; Nurse Practitioner Family; Registered Nurse
PROC: 5A1D00Z (ICD-10-PCS; principal; 2017-02-15)
DX: K56.7 Ileus, unspecified (principal); N18.6 End stage renal disease; I12.0 Hypertensive chronic kidney disease with stage 5 chronic kidney disease or end stage renal disease; E10.22 Type 1 diabetes mellitus with diabetic chronic kidney disease; K73.9 Chronic hepatitis, unspecified; E10.43 Type 1 diabetes mellitus with diabetic autonomic (poly)neuropathy; E10.65 Type 1 diabetes mellitus with hyperglycemia; K80.20 Calculus of gallbladder without cholecystitis without obstruction; F31.9 Bipolar disorder, unspecified; F32.9 Major depressive disorder, single episode, unspecified; E66.9 Obesity, unspecified; K21.9 Gastro-esophageal reflux disease without esophagitis; E03.9 Hypothyroidism, unspecified; K31.84 Gastroparesis; Z96.41 Presence of insulin pump (external) (internal); Z99.2 Dependence on renal dialysis; Z59.0 Homelessness; Z79.4 Long term (current) use of insulin; Z86.73 Personal history of transient ischemic attack (TIA), and cerebral infarction without residual deficits; Z91.14 Patient's other noncompliance with medication regimen; Z88.0 Allergy status to penicillin; Z88.1 Allergy status to other antibiotic agents; Z88.8 Allergy status to other drugs, medicaments and biological substances
CPT/HCPCS: 71010; 74020; 74176; 76705; 80048; 80069; 80076; 80202; 81001; 82150; 82962; 83605; 83690; 83735; 83880; 84484; 85025; 85610; 85730; 87040; 93005; 96374; 96375; 96376; 99285; A9270-GY; C9113; G0257; G0463; J0360; J0692; J2405; J2550; J2765; J3370